=== PATIENT | female | born 1950 | race Caucasian/White ===

== ENCOUNTER → 2024-06-25 | Outpatient (CLI) | payer BC, MEDICARE, SELFPAY ==
[2024-06-25 08:12] LABS: Collection Type, Urine Clean Catch
[2024-06-25 08:54] LABS: Bilirubin,Urine Negative (Negative); Blood,Urine Negative (Negative); Clarity,Urine Clear (Clear/Hazy); Color,Urine Yellow (Lt Yel-Yel); Glucose, Urine Negative (Negative); Ketones,Urine Negative (Negative); Leukocyte Esterase,Urine Negative (Negative); Nitrite,Urine Negative (Negative); PH,Urine 6.5 (5.0-7.0); Protein,Urine Negative (Neg - Trace); RBC,Urine 1 /hpf (0-3); Specific Gravity,Urine 1.019 (1.001-1.035); Squamous Epithelial Cell,Urine 2 /hpf (0-5); Urobilinogen,Urine Negative mg/dL (0.0-1.0); WBC,Urine 1 /hpf (0-5)
[2024-06-25 08:54] LABS: Glucose Estimated Average 114 mg/dL (80-131); Hemoglobin A1C 5.6 % Hgb (4.8-6.0)
[2024-06-25 09:01] LABS: Free T4 (Free Thyroxine) 1.18 ng/dL (0.89-1.76); Thyroid Stimulating Hormone 8.97 uIU/mL (0.55-4.78)
== END | disposition home or self-care (01) ==
LOC: COPL 06:43
PROVIDERS: PCP Family Medicine; Referring Provider Family Medicine; Visit Provider Family Medicine
DX: N30.00 Acute cystitis without hematuria (principal); E03.8 Other specified hypothyroidism; E11.9 Type 2 diabetes mellitus without complications
CPT/HCPCS: 36415; 81001; 83036; 84439; 84443; 87086

== ENCOUNTER → 2024-09-02 | Outpatient (CLI) | payer BC, MEDICARE, SELFPAY ==
[2024-09-02 07:54] LABS: Collection Type, Urine Clean Catch
[2024-09-02 08:41] LABS: Basophils # (Auto) 0.1 Thou/mm3 (0.0-0.2); Basophils % (Auto) 1 % (0-2.5); Eosinophils # (Auto) 0.4 Thou/mm3 (0.0-0.5); Eosinophils % (Auto) 5 % (0-10); Hematocrit 39.6 % (36.0-46.0); Hemoglobin 13.4 g/dL (12.0-16.0); Immature Granulocytes % (Auto) 0 % (0-0); Immature Granulocytes Auto 0.03 Thou/mm3 (0.00-0.00); Lymphocytes # (Auto) 2.6 Thou/mm3 (1.0-4.8); Lymphocytes % (Auto) 35 % (10-50); Mean Corpuscular HGB Conc 33.8 g/dl (31.0-37.0); Mean Corpuscular Hemoglobin 31.8 pg (25.0-35.0); Mean Corpuscular Volume 94 fL (80-100); Monocytes # (Auto) 0.7 Thou/mm3 (0.0-0.8); Monocytes % (Auto) 9 % (0-12); Neutrophils # (Auto) 3.7 Thou/mm3 (1.8-7.7); Neutrophils % (Auto) 49 % (37-80); Nucleated Red Blood Cell % 0 /100 WBC (0); Platelet Count 241 Thou/mm3 (140-440); RDW Standard Deviation 44.1 fL (36.4-46.3); Red Blood Count 4.22 Miln/mm3 (4.00-5.20); White Blood Count 7.6 Thou/mm3 (3.6-11.0)
[2024-09-02 08:46] LABS: Bilirubin,Urine Negative (Negative); Blood,Urine Negative (Negative); Clarity,Urine Clear (Clear/Hazy); Color,Urine Yellow (Lt Yel-Yel); Glucose, Urine Negative (Negative); Ketones,Urine Negative (Negative); Leukocyte Esterase,Urine Negative (Negative); Nitrite,Urine Negative (Negative); PH,Urine 6.5 (5.0-7.0); Protein,Urine Negative (Neg - Trace); RBC,Urine 1 /hpf (0-3); Specific Gravity,Urine 1.023 (1.001-1.035); Squamous Epithelial Cell,Urine < 1 /hpf (0-5); Urobilinogen,Urine Negative mg/dL (0.0-1.0); WBC,Urine 1 /hpf (0-5)
[2024-09-02 08:49] LABS: Parathyroid Hormone Intact 120.1 pg/ml (18.5-88.0)
[2024-09-02 08:54] LABS: Albumin, Serum 4.4 gm/dL (3.4-4.8); Anion Gap 6 (7-16); BUN/Creatinine Ratio 26 Ratio (12-20); Blood Urea Nitrogen 18 mg/dL (9-23); Calcium 9.2 mg/dL (8.3-10.6); Calcium (Corrected) 9.2 mg/dL (8.5-10.1); Carbon Dioxide 29.7 mMol/L (20.0-31.0); Chloride 106 mMol/L (98-107); Creatinine (Component) 0.7 mg/dL (0.6-1.3); Free T4 (Free Thyroxine) 1.38 ng/dL (0.89-1.76); Glucose 109 mg/dL (74-106); Osmolality,Calculated 286 (275-295); Phosphorous 3.1 mg/dL (2.4-5.1); Potassium 4.3 mMol/L (3.4-5.1); Sodium 142 mMol/L (136-145); Thyroid Stimulating Hormone 3.43 uIU/mL (0.55-4.78); eGFR > 60 See Note
[2024-09-02 09:13] LABS: Creatinine MALB Rnd Ur 101 mg/dL (30-125); Microalbumin, Random Urine < 3 mg/L (0-300)
== END | disposition home or self-care (01) ==
LOC: COPL 06:38
PROVIDERS: PCP Family Medicine; Referring Provider Internal Medicine; Visit Provider Internal Medicine
DX: E03.9 Hypothyroidism, unspecified (principal); I10 Essential (primary) hypertension; N20.0 Calculus of kidney; N23 Unspecified renal colic
CPT/HCPCS: 36415; 80069; 81001; 82043; 82570; 83970; 84439; 84443; 85025

== ENCOUNTER → 2024-09-10 | Outpatient (BNVA) | payer BC, MEDICARE, SELFPAY | END | disposition home or self-care (01) | PROVIDERS: PCP Family Medicine; Referring Provider Family Medicine; Visit Provider Urology | DX: Z09 Encounter for follow-up examination after completed treatment for conditions other than malignant neoplasm (principal); Z87.440 Personal history of urinary (tract) infections; Z87.442 Personal history of urinary calculi; Z98.84 Bariatric surgery status | CPT/HCPCS: 81003; 99212; G0463 ==

== ENCOUNTER → 2024-11-22 | Outpatient (CLI) | payer MEDICARE, BC, SELFPAY ==
--- NOTE | 2024-11-22 14:17 | XR_ITS ---
Examination: Foot, left, 3 views Technique: AP, oblique, lateral views foot, 3 views Date and time of exam: November 22, 2024 1424 hours INDICATIONS: Injury to the foot today, foot pain. FINDINGS: Severe osteopenia Fracture involving the proximal shaft fifth metatarsal without displacement IMPRESSION: Acute fracture proximal shaft fifth metatarsal
== END | disposition home or self-care (01) ==
PROVIDERS: PCP Family Medicine; Referring Provider Family Medicine; Visit Provider Family Medicine
DX: S92.352A Displaced fracture of fifth metatarsal bone, left foot, initial encounter for closed fracture (principal); X58.XXXA Exposure to other specified factors, initial encounter
CPT/HCPCS: 73630

== ENCOUNTER → 2024-11-28 | Outpatient (CLI) | payer MEDICARE, SELFPAY ==
[2024-11-28 11:32] LABS: Alanine Aminotransferase 20 U/L (10-49); Albumin, Serum 4.4 gm/dL (3.4-4.8); Alkaline Phosphatase 66 U/L (46-116); Aspartate Amino Transferase 27 U/L (0-34); Bilirubin,Direct 0.2 mg/dL (0.0-0.3); Bilirubin,Total 0.8 mg/dL (0.3-1.2); Total Protein 6.3 gm/dL (5.7-8.2)
== END | disposition home or self-care (01) ==
PROVIDERS: PCP Family Medicine; Referring Provider Student in an Organized Health Care Education/Training Program; Visit Provider Student in an Organized Health Care Education/Training Program
DX: B35.1 Tinea unguium (principal)
CPT/HCPCS: 36415; 80076

== ENCOUNTER → 2024-12-03 | Outpatient (CLI) | payer MEDICARE, SELFPAY ==
--- NOTE | 2024-12-03 | XR_ITS ---
Examination: Knee, left , 3 views Technique: Knee AP, lateral, oblique 3 views Date and time of exam: December 03, 2024 1252 hours INDICATIONS: Left knee pain 7 months. FINDINGS: Advanced left knee tricompartment osteoarthritis This includes severe narrowing medial joint space Moderate osteopenia No fracture IMPRESSION: Advanced left knee tricompartment osteoarthritis
== END | disposition home or self-care (01) ==
PROVIDERS: PCP Family Medicine; Referring Provider Family Medicine; Visit Provider Family Medicine
DX: M17.12 Unilateral primary osteoarthritis, left knee (principal)
CPT/HCPCS: 73562

== ENCOUNTER 2025-01-03 09:31 | Outpatient (AMB) | payer MEDICARE, SELFPAY ==
--- NOTE | 2025-01-03 09:45 | ORTHONT_ITS ---
Vital signs 01/03/25 09:57 Height 1.65 m Height Method Measured Weight 92.788 kg Weight Measurement Method Standing Scale BMI 34.0 BP 132/75 H Blood Pressure Source Automatic Cuff Blood Pressure Location Right Upper Arm Position Sitting Respiration 16 Pulse 74 Pulse Source Monitor Temp 97.4 F Temp Source Temporal Artery Scan Pulse Oximetry (%) 97 Oxygen Delivery Method Room Air Med/Allergies Allergies & Medications Allergies adhesive tape Allergy (Severe, Verified 01/03/25 09:58) SKIN BLISTERS, SKIN PEELS WHEN PULLING OFF Sulfa (Sulfonamide Antibiotics) Allergy (Severe, Verified 01/03/25 09:58) Hives Medication Reconciliation [id number]-FA-Ca carb-vit K 18 mg iron-400 mcg-500 mg tablet (Women's Multivitamin) 1 tab PO QDAY 10/09/18 [History Confirmed 01/03/25] alendronate 70 mg tablet (Fosamax) 70 mg PO QWEEK 01/03/23 [History Confirmed 01/03/25] amitriptyline 25 mg tablet 25 mg PO QHS 01/03/23 [History Confirmed 01/03/25] levothyroxine 125 mcg capsule 125 mcg PO QDAY 01/03/23 [History Confirmed 01/03/25] potassium citrate 10 mEq (1,080 mg) tablet,extended release 2,160 mg PO BID 01/03/23 [History Confirmed 01/03/25] ascorbic acid (vitamin C) 500 mg tablet (Vitamin C) 500 mg PO DAILY 03/10/23 [History Confirmed 01/03/25] folic acid-vit B6-vit B12 2.5 mg-25 mg-2 mg tablet 1 tab PO DAILY 03/10/23 [History Confirmed 01/03/25] losartan 50 mg-hydrochlorothiazide 12.5 mg tablet 1 tab PO DAILY 03/10/23 [History Confirmed 01/03/25] trazodone 100 mg tablet 100 mg PO HS 03/10/23 [History Confirmed 01/03/25] terbinafine HCl 125 mg oral granules in packet mg PO 01/03/25 [History Confirmed 01/03/25] Exam Exam Patient is in no acute distress and is cooperative with the examination today. Breathing is nonlabored. Patient has a normal mood and affect. Bilateral extremities were evaluated and demonstrates sensation intact to light touch. Palpable pedal pulses are present. No significant edema is present. Bilateral hips were examined. The patient has no pain with log roll of the hips. Internal rotation to 30 degrees and external rotation to 30 degrees is painless. Negative FADIR. Right knee was examined today. The right knee is in reasonable alignment. Range of motion from 0-120 degrees. Knee is stable to varus and valgus as well as AP translation with <5mm. Patient has a negative McMurrays. There is no pain with patellofemoral compression and no crepitus noted. The knee is nontender to palpation. Left knee was examined today. The left knee is in varus alignment. Range of motion from 0-115 degrees. Knee is stable to varus and valgus as well as AP translation with <5mm. Patient has a negative McMurrays. There is no pain with patellofemoral compression and no crepitus noted. The knee is tender to palpation medially. Left knee x-rays demonstrates complete joint space obliteration of the medial joint with varus deformity. Osteophytes are present Assessment and Plan Problem List (1) Arthritis of left knee: Status: Acute Plan: Patient is a pleasant 74-year-old female with left knee pain and left knee arthritis. We discussed different treatment options. She has failed conservative treatment and the pain is affecting her quality life. She cannot take anti-inflammatories due to her gastric bypass. We thus discussed total knee replacement is a reasonable option. The nature and purpose of the total knee replacement, alternative method(s) of treatment, the material risks involved, and the possibility of complications were fully explained to the patient. The patient does NOT have any of the following contraindications to TKA: - Active infection of the knee joint, OR - Active systemic bacteremia, OR - Active skin infection or open wound at surgical site, OR - Neuropathic arthritis, OR - Severe, rapidly progressive neurological disease, OR - Severe medical condition that makes risks of surgery outweigh the potential benefit The patient was told the most common risks and complications associated with a total knee replacement include, but are not limited to: blood clots in the leg, fatal pulmonary embolism, dislocation of the prosthesis, intraoperative and postoperative fractures of the femur or tibia, infection, failure of the prosthesis or grafting materials, complications from anesthesia, reactions to blood transfusions, postoperative leg length inequality, instability of the knee replacement, nerve damage or injury, vascular injury, delayed wound healing, infection, other injury or even . In addition, there are risks associated with anesthesia given during this operation. Also, the patient was told that after undergoing a total knee replacement there may still be persistent pain or disability. The patient was informed that the success of this operation in part depends upon the mechanical devices which are going to be implanted and that these devices can fail or malfunction, and may need to be repaired or replaced and there are no guarantees as to the longevity of this device or its parts and that it or its parts could fail prematurely. The patient was also notified that during the course of surgery, there may be a need to use bone graft from donors, and that any bone graft used will be carefully screened for communicable diseases, including AIDS, hepatitis, Wali-Creutzfeldt, or other diseases, but despite the screening procedures, there is a small chance that they could contract one of these diseases. Finally, the patient was asked to follow completely and fully with all advice and recommended treatments, and that recovery and ultimate outcome are affected by their compliance with recommended treatment. We discussed the risks, benefits and treatment alternatives, and the patient is interested in proceeding with surgery. We will try to set this up as expeditiously as possible. 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) Reason for Visit:: LEFT KNEE OSTEOARTHRITIS Seen by Clinical Staff ONLY (RN/MA): No Equine Intern Required: No PCP or OBGYN visit in last 3 months: Yes Hx Now: No Do You Feel Safe at Home: Yes Authorities Contacted: N/A Questionairres Past Medical History Past Medical History Have you ever been diagnosed with any of the following: Neurological Problems Cerebrovascular Accident (CVA): No Transient Ischemic Attacks (TIA): No Dementia: No Alzheimer's Disease: No Parkinson's Disease: No Brain Tumor: No Meningitis: No Seizures: No Epilepsy: No Multiple Sclerosis: No Cerebral Palsy: No Amyotrophic Lateral Sclerosis (ALS/Radhika Gehrig's): No Guillain-[place] Syndrome: No Spina Bifida: No Paralysis: No Peripheral Neuropathy: Yes Rey's Palsy: No Subdural Hematoma: No Migraine: Yes Head Trauma: No Spinal Cord Injury: No Traumatic Brain Injury: No Cardiology Problems Myocardial Infarction: No Cardiac Arrhythmia: No Atrial Fibrillation: No Angina: No Heart Murmur: No Coronary Artery Disease: No Atherosclerotic Heart Disease: No Peripheral Vascular Disease: No Hypercholesterolemia: No Aneurysm: No Congestive Heart Failure: No Congenital Heart Disease: No Valvular Heart Disease: No Rheumatic Fever: No Cardiomyopathy: No Edema: Yes Pericarditis: No Cellulitis: No Deep Vein Thrombosis: No Hypertension: Yes Hypotension: No Varicose Veins: Yes Respiratory Problems Chronic Obstructive Pulmonary Disease (COPD): No Asthma: No Bronchitis: No Emphysema: No Pneumonia: No Pulmonary Fibrosis: No Tuberculosis: No Pulmonary Embolism: No Pulmonary Edema: No Sleep Apnea: No CPAP Dependent: No Respiratory Aspiration: No Dyspnea: No Orthopnea: No Hx Cough: No Cough: No Wheezing: No Chest Deformities: No Smoking: No Smoking Cessation Counseling: No Smoking Exposure: No Tobacco Use: No Clubbing: No Exposure to Respiratory Irritants: No Intubation: No Stomache/Intestinal Problems Liver Cancer: No Hepatitis: No Cirrhosis: No Pancreatic Cancer: No Pancreatitis: Yes Celiac Disease: No Gall Bladder Disease: Yes (cholecystectomy) Gastrointestinal Bleed: No Esophageal Varices: No Costello's Esophagus: No Colitis: Yes Ulcerative Colitis: No Diverticulitis: No Diverticulosis: No Ulcer: No Colorectal Cancer: No Irritable Bowel: No Crohn's Disease: No Obstructive Bowel: No Hiatal Hernia: No Hemorrhoids: No Gastroesophageal Reflux Disease: No Polyps: No Obesity: No Genital/Urinary Problems Chronic Kidney Disease: No Renal Disease: No Kidney Stones: Yes (lythotripsyx7) Polycystic Kidney Disease: No Neurogenic Bladder: No Inguinal Hernia: No Dialysis: No Reproductive Problems Breast Cancer: No Endometriosis: No Fibroids: No Genital Herpes: No Gonorrhea: No Pelvic Inflammatory Disease: No Polycystic Ovarian Syndrome: No Previous Pregnancies: Yes () Syphilis: No Uterine Prolapse: No Musculoskeletal Problems Muscular Dystrophy: No Myasthenia Gravis: No Marfan's Syndrome: No Bone Cancer: No Arthritis: Yes Rheumatoid Arthritis: No Osteoporosis: No Degenerative Disk Disease: No Gout: Yes Scoliosis: No Carpal Tunnel Syndrome: Yes (and trigger finger release ) Fibromyalgia: No Fractures: Yes Degenerative Joint Disease: No Osteomyelitis: No Poliovirus: No Head,Eye,Nose,Throat Problems Cataracts: No Glaucoma: No Blind: No Retinal Detachment: No Macular Degeneration: No Chronic Ear Infections: No Deafness: No Eye Prosthesis: No Endocrine Problems Diabetes Mellitus Type 1: No Diabetes Mellitus Type 2: Yes (History of no longer taking medication) Hypoglycemia: No Hedrick's Syndrome: No [place]'s Disease: No Hyperthyroidism: No Hypothyroidism: Yes Thyroid Cancer: No Parathyroid Disease: No Pituitary Disease: No Systemic Lupus Erythematosus: No Syndrome of Inappropriate Antidiuretic Hormone: No Adrenal Disease: No Graves' Disease: No Blood Problems Anemia: No Leukemia: No Hemophilia: No Thalassemia: No Sickle Cell Disease: No Clotting Problems: No Psychologic Problems Schizophrenia: No Recreational Drug Use: No Bipolar Disorder: No Depression: No Anxiety: No Behavior Problems: No Self-Mutilation: No Attention Deficit Disorder: No Attention Deficit Hyperactivity Disorder: No Depression: No Post Traumatic Stress Disorder: No Eating Disorder: No Other Problems Hospitalization: Yes Autoimmune Disease: No Down Syndrome: No Autism: No Developmental Delay: No Cosmetic Surgery: No Shingles: No Falls: No Blood Transfusions: No Blood Transfusion Reaction: No Anesthesia Reactions: No Organ Transplant: No Chemotherapy: No Radiation Therapy: No Hyperbaric Therapy: No MRSA: No VRSA: No Vancomycin-Resistant Enterococci: No Human Immunodeficiency Virus (HIV): No Chicken Pox: Yes Measles: Yes Mumps: Yes Rubella (Qatari Measles): No Pertussis: No Klebsiella Pneumoniae Carbapenemase Producing Bacteria: No Clostridium Difficile: No Hepatitis A: No Hepatitis B: No Hepatitis C: No Communicable Disease: No Cancer: No Cervical Cancer: No Lung Cancer: No Ovarian Cancer: No Surgical History Angioplasty: No Appendectomy: No Bariatric Surgery: No Breast Surgery: No Cancer Surgery: No Carotid Endarterectomy: No Cholecystectomy: No Colectomy: No Colostomy: No Coronary Artery Bypass Graft: No Valve Replacement: No Herniorrhaphy: No Total Hip Replacement: No Total Knee Replacement: Yes (RIGHT KNEE) Hysterectomy: No Pacemaker: No Sinus Surgery: No Splenectomy: No TAHBSO-Total Abdominal Hysterectomy: No Thyroidectomy: Yes (Parathyroidectomy 2011) Ureter Stent: No Subjective Visit Visit for: new patient and knee Immunization / Flu Flu Vaccine in the Last 12 Months: Yes Flu Vaccine Exclusion Criteria: Allergy to Eggs History of Present Illness Chief complaint: LEFT KNEE OSTEOARTHRITIS Jasmin is a pleasant 74-year-old female with left knee pain. She had a right total knee replacement approximately 15 years ago. She is doing well. For the left knee she cannot take anti-inflammatories because she had a prior gastric bypass. She has not had any injections because she is deathly afraid of needles. The pain is affecting her quality life and happiness Personal History Occupation: RETIRED [employer] provided: No Pain Pain level (0-10): 6 Pain location: inside (medial) and anterior Pain quality: sharp Pain timing: night Associated signs & symptoms: none Ambulatory data Ambulatory device: cane and walker Treatments Improvement with previous injections: No Improvement with PT: No Improvement with NSAIDS: no Review of Systems Review of Systems: All systems negative unless otherwise noted in HPI.
[2025-01-03 09:57] VITALS: BP 132/75; PULSE 74; RESP 16; TEMP 36.3; O2SAT 97; BMI 34.0
--- NOTE | 2025-01-03 10:02 | XR_ITS ---
Examination: Bilateral knees 2 views Right lateral knee left lateral knee 2 views Bilateral axial knees single view TECHNIQUE: Bilateral AP knees standing single view, bilateral PA knees standing single view flexion Standing right lateral knee left lateral knee 2 views Bilateral axial knees single view total 5 views Date and time: January 03, 2025 1019 hours INDICATIONS: Left knee pain 6 months FINDINGS: Significant osteopenia Total right knee arthroplasty. Satisfactory alignment. No loosening of the prosthetic components Severe narrowing [id number]-mz-ulfo medial joint space left knee Significant osteoarthritis lateral patellofemoral joints left knee IMPRESSION: Advanced tricompartment osteoarthritis left knee including severe narrowing medial joint space
== END 2025-01-03 10:15 | disposition home or self-care (01) ==
LOC: HODSRG 09:31
PROVIDERS: PCP Family Medicine; Referring Provider Family Medicine; Supervising Provider Orthopaedic Surgery Adult Reconstructive Orthopaedic Surgery; Visit Provider Orthopaedic Surgery Adult Reconstructive Orthopaedic Surgery
DX: M17.12 Unilateral primary osteoarthritis, left knee (principal); M25.562 Pain in left knee; I10 Essential (primary) hypertension; E11.9 Type 2 diabetes mellitus without complications; Z98.84 Bariatric surgery status
CPT/HCPCS: 73564; 99203; G0463

== ENCOUNTER → 2025-01-13 | Outpatient (CLI) | payer MEDICARE, BC, SELFPAY ==
--- NOTE | 2025-01-13 10:30 | XR_ITS ---
Examination: Screening digital mammography, bilateral Computer aided detection 3-D breast Tomosynthesis, bilateral Date and time of exam: January 13, 2025 1003 hours Compared to mammograms dating to January 03, 2019 Indication: Screening Technique: Nonmagnified MLO, CC views of the breasts to been obtained, reconstructed from 3-D Tomosynthesis images. R2 computer aided detection program utilized for evaluation of suspicious masses and/or abnormal calcifications. 3-D Tomosynthesis images obtained. Findings: Scattered areas of fibroid rather density. Benign calcifications. No interval suspicious masses Impression: BI-RADS category II: Benign Findings. Recommend 1 year follow-up mammogram.
[2025-01-13 10:49] LABS: Basophils # (Auto) 0.0 Thou/mm3 (0.0-0.2); Basophils % (Auto) 1 % (0-2.5); Eosinophils # (Auto) 0.3 Thou/mm3 (0.0-0.5); Eosinophils % (Auto) 4 % (0-10); Hematocrit 39.1 % (36.0-46.0); Hemoglobin 13.8 g/dL (12.0-16.0); Immature Granulocytes Auto 0.03 Thou/mm3 (0.00-0.00); Lymphocytes # (Auto) 2.9 Thou/mm3 (1.0-4.8); Lymphocytes % (Auto) 42 % (10-50); Mean Corpuscular HGB Conc 35.3 g/dl (31.0-37.0); Mean Corpuscular Hemoglobin 32.2 pg (25.0-35.0); Mean Corpuscular Volume 91 fL (80-100); Monocytes # (Auto) 0.4 Thou/mm3 (0.0-0.8); Monocytes % (Auto) 6 % (0-12); Neutrophils # (Auto) 3.2 Thou/mm3 (1.8-7.7); Neutrophils % (Auto) 47 % (37-80); Nucleated Red Blood Cell # 0.00 Thou/mm3 (0.00-0.00); Nucleated Red Blood Cell % 0 /100 WBC (0); Platelet Count 282 Thou/mm3 (140-440); RDW Standard Deviation 42.8 fL (36.4-46.3); Red Blood Count 4.29 Miln/mm3 (4.00-5.20); White Blood Count 7.0 Thou/mm3 (3.6-11.0)
[2025-01-13 10:58] LABS: INR 1.0 (0.9-1.3); Partial Thromboplastin Time 26.9 Seconds (22.0-36.0); Prothrombin Time 10.8 Seconds (9.0-12.2)
--- NOTE | 2025-01-13 10:59 | EKG_ITS ---
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
[2025-01-13 11:06] LABS: Alanine Aminotransferase 32 U/L (10-49); Albumin, Serum 4.5 gm/dL (3.4-4.8); Albumin/Globulin Ratio 1.8 (1.2-2.2); Alkaline Phosphatase 72 U/L (46-116); Anion Gap 13 (7-16); Aspartate Amino Transferase 42 U/L (0-34); BUN/Creatinine Ratio 26 Ratio (12-20); Bilirubin,Total 0.7 mg/dL (0.3-1.2); Blood Urea Nitrogen 29 mg/dL (9-23); Calcium 9.5 mg/dL (8.3-10.6); Calcium (Corrected) 9.5 mg/dL (8.5-10.1); Carbon Dioxide 22.9 mMol/L (20.0-31.0); Chloride 104 mMol/L (98-107); Creatinine (Component) 1.1 mg/dL (0.6-1.3); Globulin 2.5 gm/dL (2.3-3.5); Glucose 110 mg/dL (74-106); Osmolality,Calculated 286 (275-295); Potassium 4.0 mMol/L (3.4-5.1); Sodium 140 mMol/L (136-145); Total Protein 7.0 gm/dL (5.7-8.2); eGFR 53 See Note
[2025-01-13 11:19] LABS: Glucose Estimated Average 120 mg/dL (80-131); Hemoglobin A1C 5.8 % Hgb (4.8-6.0)
== END | disposition home or self-care (01) ==
LOC: CDIM 09:49 → COPL 10:12
PROVIDERS: Referring Provider Family Medicine; Visit Provider Family Medicine
DX: Z01.818 Encounter for other preprocedural examination (principal); Z12.31 Encounter for screening mammogram for malignant neoplasm of breast; R92.323 Mammographic fibroglandular density, bilateral breasts; R92.1 Mammographic calcification found on diagnostic imaging of breast
CPT/HCPCS: 36415; 77063; 77067; 80053; 83036; 85025; 85610; 85730; 93005

== ENCOUNTER → 2025-02-04 | Outpatient (CLI) | payer MEDICARE, BC, SELFPAY ==
--- NOTE | 2025-02-04 10:16 | XR_ITS ---
Examination: CT left lower extremity, without contrast. 2-D sagittal reconstructions. 2-D coronal reconstructions. 3-D reconstructions. Date and time of exam:February 04, 2025 10:35 AM INDICATIONS: Diagnosis left knee unilateral osteoarthritis left knee pain 8 months CTDI: vol (mGy):13.4 DLP: (mGycm):940 Technique: Multiple 1.25 mm axial sections of the left lower extremity without intravenous contrast have been obtained. 2-D sagittal and coronal reconstructions have been obtained. 3-D reconstructions have been obtained. Low dose protocols were performed. One or more of the following dose reduction techniques were used; automated exposure control, adjustment of the mA and/or KV according to patient size, use of iterative reconstruction technique. Findings: Prominent osteopenia Moderate narrowing left hip joint No left hip fracture or dislocation No avascular necrosis Severe narrowing medial joint space left knee Significant osteoarthritis lateral and patellofemoral joints IMPRESSION: Advanced left knee osteoarthritis, including severe narrowing medial joint space
== END | disposition home or self-care (01) ==
PROVIDERS: PCP Family Medicine; Referring Provider Orthopaedic Surgery Adult Reconstructive Orthopaedic Surgery; Visit Provider Orthopaedic Surgery Adult Reconstructive Orthopaedic Surgery
DX: M17.12 Unilateral primary osteoarthritis, left knee (principal); M25.862 Other specified joint disorders, left knee
CPT/HCPCS: 73700

== ENCOUNTER → 2025-02-11 | Outpatient (CLI) | payer MEDICARE, BC, SELFPAY ==
[2025-02-11 14:30] LABS: Collection Type, Urine Clean Catch
[2025-02-11 17:12] LABS: Bilirubin,Urine Negative (Negative); Blood,Urine Negative (Negative); Clarity,Urine Clear (Clear/Hazy); Color,Urine Yellow (Lt Yel-Yel); Glucose, Urine Negative (Negative); Ketones,Urine Negative (Negative); Leukocyte Esterase,Urine Trace (Negative); Nitrite,Urine Positive (Negative); PH,Urine 6.0 (5.0-7.0); Protein,Urine Negative (Neg - Trace); Specific Gravity,Urine 1.025 (1.001-1.035); Urobilinogen,Urine 0.2 mg/dL (0.0-1.0)
[2025-02-11 18:09] LABS: Bacteria,Urine 1+; RBC,Urine 5 /hpf (0-3); Squamous Epithelial Cell,Urine 2 /hpf (0-5); WBC,Urine 5 /hpf (0-5)
== END | disposition home or self-care (01) ==
LOC: SLDO 14:20
PROVIDERS: Referring Provider Family Medicine; Visit Provider Family Medicine
DX: N30.00 Acute cystitis without hematuria (principal)
CPT/HCPCS: 81001; 87077; 87086; 87186

== ENCOUNTER 2025-02-17 06:40 | Day surgery (SDC) | payer MEDICARE, BC, SELFPAY ==
[2025-02-12 10:30] VITALS: BMI 35.7
[2025-02-12 11:56] LABS: Basophils # (Auto) 0.1 Thou/mm3 (0.0-0.2); Basophils % (Auto) 1 % (0-2.5); Eosinophils # (Auto) 0.3 Thou/mm3 (0.0-0.5); Eosinophils % (Auto) 4 % (0-10); Hematocrit 40.8 % (36.0-46.0); Hemoglobin 13.8 g/dL (12.0-16.0); Immature Granulocytes Auto 0.01 Thou/mm3 (0.00-0.00); Lymphocytes # (Auto) 2.1 Thou/mm3 (1.0-4.8); Lymphocytes % (Auto) 32 % (10-50); Mean Corpuscular HGB Conc 33.8 g/dl (31.0-37.0); Mean Corpuscular Hemoglobin 32.2 pg (25.0-35.0); Mean Corpuscular Volume 95 fL (80-100); Monocytes # (Auto) 0.5 Thou/mm3 (0.0-0.8); Monocytes % (Auto) 8 % (0-12); Neutrophils # (Auto) 3.6 Thou/mm3 (1.8-7.7); Neutrophils % (Auto) 55 % (37-80); Nucleated Red Blood Cell # 0.00 Thou/mm3 (0.00-0.00); Nucleated Red Blood Cell % 0 /100 WBC (0); Platelet Count 242 Thou/mm3 (140-440); RDW Standard Deviation 45.1 fL (36.4-46.3); Red Blood Count 4.29 Miln/mm3 (4.00-5.20); White Blood Count 6.6 Thou/mm3 (3.6-11.0)
[2025-02-12 12:02] LABS: INR 1.0 (0.9-1.3); Partial Thromboplastin Time 26.0 Seconds (22.0-36.0); Prothrombin Time 10.9 Seconds (9.0-12.2)
[2025-02-12 12:17] LABS: Alanine Aminotransferase 21 U/L (10-49); Albumin, Serum 4.4 gm/dL (3.4-4.8); Albumin/Globulin Ratio 2.2 (1.2-2.2); Alkaline Phosphatase 64 U/L (46-116); Anion Gap 10 (7-16); Aspartate Amino Transferase 29 U/L (0-34); BUN/Creatinine Ratio 23 Ratio (12-20); Bilirubin,Total 0.6 mg/dL (0.3-1.2); Blood Urea Nitrogen 21 mg/dL (9-23); Calcium 10.1 mg/dL (8.3-10.6); Calcium (Corrected) 10.1 mg/dL (8.5-10.1); Carbon Dioxide 26.9 mMol/L (20.0-31.0); Chloride 103 mMol/L (98-107); Creatinine (Component) 0.9 mg/dL (0.6-1.3); Estimated Creatinine Clearance 59.8 mL/min (>60); Globulin 2.0 gm/dL (2.3-3.5); Glucose 121 mg/dL (74-106); Osmolality,Calculated 283 (275-295); Potassium 4.4 mMol/L (3.4-5.1); Sodium 140 mMol/L (136-145); Total Protein 6.4 gm/dL (5.7-8.2); eGFR > 60 See Note
--- NOTE | 2025-02-14 12:39 | SUR.PREOP ---
Cardiac records reviewed with Dr Herr.
[2025-02-17] VITALS (21 sets, daily range): BP systolic 111–157; BP diastolic 53–89; PULSE 70–86; RESP 12–24; TEMP 36.3–36.5; O2SAT 95–100; BMI 35.6
--- NOTE | 2025-02-17 07:34 | SUR.PREOP ---
Patient expressed gratitude for prayer before their procedure.
[2025-02-17] MEDS: MELOXICAM 7.5 MG TABLET PO (07:40)
[2025-02-17] MEDS: ACETAMINOPHEN 325 MG TABLET 650 MG PO (07:40)
[2025-02-17] MEDS: PREGABALIN 75 MG CAPSULE PO (07:41)
[2025-02-17] MEDS: RINGERS LACTATED 1000 ML 1,000 ML 20 ML IV (07:41)
--- NOTE | 2025-02-17 10:33 | ESOP_ITS ---
Date of Procedure 02/17/25 Pre Op Diagnosis left knee osteoarthritis Post Op Diagnosis left knee osteoarthritis Procedure left total knee replacement Findings full thickness cartilage loss and osteophytes Procedure Description Indication: The patient is a [69] year old who has a long history of left knee pain. X-rays show degenerative arthritis involving the knee. Over the past several years the patient has had increasing pain, progressive limitation in function. He has failed conservative measures including activity modification, physical therapy, injections, anti-inflammatories, and assistive devices. After a lengthy discussion of the risks and benefits, the patient presents now for total knee replacement. The nature and purpose of the total knee replacement, alternative method(s) of treatment, the material risks involved, and the possibility of complications were fully explained to the patient. The patient was told the most common risks and complications associated with a total knee replacement include, but are not limited to blood clots in the leg, fatal pulmonary embolism, dislocation of the prosthesis, intraoperative and postoperative fractures of the femur or tibia, infection, failure of the prosthesis or grafting materials, complications from anesthesia, reactions to blood transfusions, postoperative leg length inequality, instability of the knee replacement, nerve damage or injury, vascular injury, delayed wound healing, infections, other injury or even . In addition, there are risks associated with anesthesia given during this operation, temporary or permanent numbness on the skin lateral to the incision can be a complication unique to total knee surgery, and kneeling can be painful after knee replacement surgery. Also, the patient was told that after undergoing a total knee replacement there may still be pain or disability. We discussed with the patient that we will be using a robot-assisted technology. We discussed that there is a possibility of converting to manual instrumentation. The patient was informed that the success of this operation in part depends upon the mechanical devices which are going to be implanted and that these devices can fail or malfunction, and may need to be repaired or replaced and there are no guarantees as to the longevity of this device or its part and that it or its parts could fail prematurely. Finally, the patient was asked to follow completely and fully with all advice and recommended treatments, and that recovery and ultimate outcome are affected by their compliance with recommended treatment. Surgical technique: Patient was marked and consented in the pre-operative area. The patient was brought to the operating room and placed on the operating table in a supine position. Prior to positioning, a timeout procedure was performed between the surgeon, the anesthesiologist, and the nursing staff where the patient and the operative side were identified and confirmed. After adequate general anesthetic was obtained, the left lower extremity was prepped and draped in the usual sterile fashion. A weight based dose of Cefazolin were administered within 1 hour prior to incision. The robot was preregistered and calirated before the incision. The extremity was exsanguinated with an esmarch badge and tourniquet inflated to 250mmHg. A midline incision was made. A median parapatellar arthrotomy was made. The patella was subluxed laterally. A medial release was performed to expose the medial tibia. His femoral and tibial pins were placed through an intra incisional manner for both cases. Every effort was made to ensure that the distalmost aspect of the pin was hung in the second cortex. The arrays were then tightened several times to ensure that it was fixed for the remainder of the case. Both femoral and tibial checkpoints were then placed. We then went through the registration process of the bone. We then assessed the knee deformity and attempted to correct it. We also used the robot to aid in judging laxity in both extension and flexion. Final based on laxity and alignment we changed the preoperative assessment to obtain proper proper implant positioning and to correct deformity. Attention was then placed to the tibia. We made a tibial cut using the robot ensuring that both the MCL and the patella tendon were protected with retractors. We then went to the femur and made the posterior cut followed by the anterior cut and the anterior chamfer. The bone was then removed and we made a distal femur cut and a posterior chamfer cut. We verified all cuts. A trial reduction was performed with a size 4 femoral component and a size 4 keeled tibial component. The patella tracked centrally, and no lateral retinacular release was necessary. The trial implants were removed. The arrays, pins, and checkpoints were all removed. We performed a verification that all pins were removed. The cut bone surfaces were lavaged. A size 4 left femoral component, a size 4 keeled tibial component were impacted into position. The knee was felt to be well balanced in the sagittal and coronal plane. The final 4x10 mm cruciate- substituting articular insert was impacted into the tibial tray. The knee was brought out to full extension, flexed up to 120 degrees. It was stable to varus and valgus stress and appropriately balanced in flexion and extension. The wounds were copiously irrigated following deflation of tourniquet. The medial retinaculum was reapproximated with #1 vicryl and quill. The subcutaneous tissues were closed with 0 and 2-0 interrupted Vicryl. The skin was closed with 3-0 Monofilament V loc suture. A sterile dressing was applied. The patient was transferred to a bed and brought to recovery in stable condition. The patient tolerated the procedure well. There were no intraoperative complications. Sponge and needle counts were correct times 2. As the attending surgeon, Aarti prater I was present and performed the entire operation. Grafts/Implants Size 4 CR Femur Size 4 Tibia 10mm poly CS Anesthesia spinal Implants jan Pathology / specimen None Pathology comment: none Estimated Blood Loss 150 Condition Stable Disposition same day Surgeon Pavel Samuels MD Surgical Staff Operation Date: 02/17/25 10:45 Case Staff Anesthesiologist: Jovany Herr RNrn cardiovascular: Leonie Bassett
--- NOTE | 2025-02-17 10:50 | SUR.PHASEI ---
pt received from OR in recovery bay 7. pt awake and alert, breathing unlabored on room air. v/s stable. pt dressing to left lower extremity cdi. report received from Dr. Herr and Jaswinder RIVERA.
--- NOTE | 2025-02-17 11:08 | SUR.PHASEI ---
pt able to tolerate ice chips without difficulty swallowing or nausea/vomiting.
--- NOTE | 2025-02-17 11:14 | XR_ITS ---
Examination: Left knee 2 views TECHNIQUE: AP lateral left knee 2 views. Date and time: February 17, 2025 1113 hours INDICATIONS: Postop knee replacement. FINDINGS: Total left knee arthroplasty. Satisfactory alignment. No fracture IMPRESSION: Total left knee arthroplasty with satisfactory alignment
[2025-02-17] MEDS: fentaNYL CIT INJ 50 mCg/ML AMP 2ML IVP ×2 (14:55→16:36)
--- NOTE | 2025-02-17 16:55 | SUR.PHASEII ---
pt awake and alert, breathing unlabored on room air. v/s stable. pt dressing to left lower extremity cdi. pt cleared by physical therapist Jorge. pt able to ambulate to bathroom using walker. d/c instructions given pt and Marshal, all quesitons answered. pt d/c via wheelchair with all belongings.
--- NOTE | 2025-02-21 15:52 | PD.ANESPROG ---
Documentation for date of: 02/21/25 POST ANESTHESIA NOTE: Patient had spinal anesthesia and L adductor canal block for L TKA on 02/17/25. I just called and spoke with her on the phone and she denied any problems from anesthesia and only reported post op L knee pain but reported she is bending it and endorsed she has follow up with the surgeon scheduled and had no further questions for me. Jovany Herr MD Anesthesia Progress Note Progress Note Most recent Vital Signs: Last Vital Signs Temp 97.4 F 02/17/25 16:00 Pulse 85 02/17/25 16:00 Resp 14 02/17/25 16:00 BP 117/79 02/17/25 16:00 Pulse Ox 96 02/17/25 16:00 O2 Flow Rate 2 02/17/25 10:55
== END 2025-02-17 16:55 | disposition home or self-care (01) ==
PROVIDERS: Anesthesiology; PCP Family Medicine; Referring Provider Orthopaedic Surgery Adult Reconstructive Orthopaedic Surgery; Visit Provider Orthopaedic Surgery Adult Reconstructive Orthopaedic Surgery
PROC: (CPT 27447; principal; 2025-02-17 10:30)
DX: M17.12 Unilateral primary osteoarthritis, left knee (principal); M25.762 Osteophyte, left knee
CPT/HCPCS: 27447; 20985; 36415; 73560; 80053; 85025; 85610; 85730; 97162; A4217; A4649; C1713; C1776; J0690; J1100; J2250; J2704; J2795; J3010; J3490; J7120; J7999; A4648; A9270

== ENCOUNTER → 2025-03-04 | Outpatient (CLI) | payer MEDICARE, BC, SELFPAY ==
[2025-03-04 14:56] LABS: Collection Type, Urine Clean Catch
[2025-03-04 17:27] LABS: Bilirubin,Urine 2+ (Negative); Blood,Urine Negative (Negative); Clarity,Urine Clear (Clear/Hazy); Color,Urine Drk-Yellow (Lt Yel-Yel); Glucose, Urine Negative (Negative); Hyaline Casts,Urine < 1 /hpf (0-1); Ketones,Urine Negative (Negative); Leukocyte Esterase,Urine Negative (Negative); Nitrite,Urine Positive (Negative); PH,Urine 6.5 (5.0-7.0); Protein,Urine Negative (Neg - Trace); RBC,Urine 1 /hpf (0-3); Specific Gravity,Urine 1.027 (1.001-1.035); Squamous Epithelial Cell,Urine 1 /hpf (0-5); Urobilinogen,Urine 4.0 mg/dL (0.0-1.0); WBC,Urine 1 /hpf (0-5)
== END | disposition home or self-care (01) ==
PROVIDERS: PCP Family Medicine; Referring Provider Family Medicine; Visit Provider Family Medicine
DX: N30.00 Acute cystitis without hematuria (principal)
CPT/HCPCS: 81001; 87086

== ENCOUNTER → 2025-03-11 | Outpatient (CLI) | payer MEDICARE, BC, SELFPAY ==
[2025-03-11 07:58] LABS: Collection Type, Urine Clean Catch
[2025-03-11 08:39] LABS: Basophils # (Auto) 0.1 Thou/mm3 (0.0-0.2); Basophils % (Auto) 1 % (0-2.5); Eosinophils # (Auto) 0.5 Thou/mm3 (0.0-0.5); Eosinophils % (Auto) 8 % (0-10); Hematocrit 40.5 % (36.0-46.0); Hemoglobin 13.5 g/dL (12.0-16.0); Immature Granulocytes Auto 0.02 Thou/mm3 (0.00-0.00); Lymphocytes # (Auto) 2.3 Thou/mm3 (1.0-4.8); Lymphocytes % (Auto) 33 % (10-50); Mean Corpuscular HGB Conc 33.3 g/dl (31.0-37.0); Mean Corpuscular Hemoglobin 31.9 pg (25.0-35.0); Mean Corpuscular Volume 96 fL (80-100); Monocytes # (Auto) 0.6 Thou/mm3 (0.0-0.8); Monocytes % (Auto) 9 % (0-12); Neutrophils # (Auto) 3.5 Thou/mm3 (1.8-7.7); Neutrophils % (Auto) 50 % (37-80); Nucleated Red Blood Cell # 0.00 Thou/mm3 (0.00-0.00); Nucleated Red Blood Cell % 0 /100 WBC (0); Platelet Count 345 Thou/mm3 (140-440); RDW Standard Deviation 47.6 fL (36.4-46.3); Red Blood Count 4.23 Miln/mm3 (4.00-5.20); White Blood Count 7.1 Thou/mm3 (3.6-11.0)
[2025-03-11 08:44] LABS: Bilirubin,Urine Negative (Negative); Blood,Urine Negative (Negative); Clarity,Urine Clear (Clear/Hazy); Color,Urine Yellow (Lt Yel-Yel); Glucose, Urine Negative (Negative); Hyaline Casts,Urine < 1 /hpf (0-1); Ketones,Urine Negative (Negative); Leukocyte Esterase,Urine Negative (Negative); Nitrite,Urine Negative (Negative); PH,Urine 5.5 (5.0-7.0); Protein,Urine Negative (Neg - Trace); RBC,Urine 2 /hpf (0-3); Specific Gravity,Urine 1.024 (1.001-1.035); Squamous Epithelial Cell,Urine 2 /hpf (0-5); Urobilinogen,Urine Negative mg/dL (0.0-1.0); WBC,Urine 2 /hpf (0-5)
[2025-03-11 08:48] LABS: Glucose Estimated Average 111 mg/dL (80-131); Hemoglobin A1C 5.5 % Hgb (4.8-6.0)
[2025-03-11 08:54] LABS: Parathyroid Hormone Intact 118.8 pg/ml (18.5-88.0)
[2025-03-11 08:55] LABS: Vitamin D 25 Hydroxy Total 45.2 ng/mL (7.3-40.2)
[2025-03-11 08:56] LABS: Albumin, Serum 4.4 gm/dL (3.4-4.8); Anion Gap 11 (7-16); BUN/Creatinine Ratio 28 Ratio (12-20); Blood Urea Nitrogen 28 mg/dL (9-23); Calcium 9.4 mg/dL (8.3-10.6); Calcium (Corrected) 9.4 mg/dL (8.5-10.1); Carbon Dioxide 26.4 mMol/L (20.0-31.0); Chloride 103 mMol/L (98-107); Creatinine (Component) 1.0 mg/dL (0.6-1.3); Glucose 125 mg/dL (74-106); Osmolality,Calculated 285 (275-295); Phosphorous 3.0 mg/dL (2.4-5.1); Potassium 3.8 mMol/L (3.4-5.1); Sodium 140 mMol/L (136-145); Uric Acid 6.9 mg/dL (3.1-7.8); eGFR 59 See Note
== END | disposition home or self-care (01) ==
LOC: COPL 06:40
PROVIDERS: PCP Family Medicine; Referring Provider Internal Medicine; Visit Provider Internal Medicine
DX: E11.9 Type 2 diabetes mellitus without complications (principal); N20.0 Calculus of kidney; N23 Unspecified renal colic; I10 Essential (primary) hypertension; E03.9 Hypothyroidism, unspecified
CPT/HCPCS: 36415; 80069; 81001; 82306; 83036; 83970; 84550; 85025

== ENCOUNTER 2025-04-15 09:29 | Outpatient (AMB) | payer MEDICARE, BC, SELFPAY ==
--- NOTE | 2025-04-15 09:49 | ORTHONT_ITS ---
Vital signs 04/15/25 09:52 Height 1.6 m Height Method Stated Weight 85.445 kg Weight Measurement Method Standing Scale BMI 33.3 BP 106/62 Blood Pressure Source Automatic Cuff Blood Pressure Location Left Upper Arm Position Sitting Respiration 18 Pulse 78 Pulse Source Monitor Temp 97.2 F Temp Source Temporal Artery Scan Pulse Oximetry (%) 95 Oxygen Delivery Method Room Air Med/Allergies Allergies & Medications Allergies adhesive tape Allergy (Severe, Verified 04/15/25 09:52) SKIN BLISTERS, SKIN PEELS WHEN PULLING OFF Sulfa (Sulfonamide Antibiotics) Allergy (Severe, Verified 04/15/25 09:52) Hives Medication Reconciliation [id number]-[id number]-Ca carb-vit K 18 mg iron-400 mcg-500 mg tablet (Women's Multivitamin) 1 tab PO QDAY 10/09/18 [History Confirmed 04/15/25] alendronate 70 mg tablet (Fosamax) 70 mg PO QWEEK 01/03/23 [History Confirmed 04/15/25] potassium citrate 10 mEq (1,080 mg) tablet,extended release 2,160 mg PO BID 01/03/23 [History Confirmed 04/15/25] ascorbic acid (vitamin C) 500 mg tablet (Vitamin C) 500 mg PO DAILY 03/10/23 [History Confirmed 04/15/25] folic acid-vit B6-vit B12 2.5 mg-25 mg-2 mg tablet 1 tab PO DAILY 03/10/23 [History Confirmed 04/15/25] trazodone 100 mg tablet 100 mg PO HS 03/10/23 [History Confirmed 04/15/25] acetaminophen 500 mg tablet (Acetaminophen Extra Strength) 1,000 mg (2 x 500 mg) PO Q6H PRN pain #90 tabs 02/12/25 [Rx Confirmed 04/15/25] amitriptyline 10 mg tablet 10 mg PO HS 02/12/25 [History Confirmed 04/15/25] aspirin 81 mg tablet,delayed release 81 mg PO BID #60 tabs 02/12/25 [Rx Confirmed 04/15/25] carvedilol 6.25 mg tablet (Coreg) 6.25 mg PO Q12H 02/12/25 [History Confirmed 04/15/25] doxycycline hyclate 100 mg tablet 100 mg PO BID #14 tabs 08/20/25 [Rx Confirmed 04/15/25] levothyroxine 150 mcg tablet 150 mcg PO DAILY 02/12/25 [History Confirmed 04/15/25] levothyroxine 25 mcg tablet 25 mcg PO MONFRI 02/12/25 [History Confirmed 04/15/25] losartan 100 mg-hydrochlorothiazide 12.5 mg tablet 1 tab PO DAILY 02/12/25 [ History Confirmed 04/15/25] nitrofurantoin monohydrate/macrocrystals 100 mg capsule 100 mg PO DAILY 02/12/25 [History Confirmed 04/15/25] sennosides 8.6 mg-docusate sodium 50 mg tablet (Senna-S) 1 tab-cap PO QDAY #30 tabs 02/12/25 [Rx Confirmed 04/15/25] cyclobenzaprine 5 mg tablet 5 mg PO TID PRN muscle spasm #60 tabs 02/20/25 [Rx Confirmed 04/15/25] gabapentin 300 mg capsule 300 mg PO .qhs #30 caps 03/04/25 [Rx Confirmed 04/15/25] oxycodone 5 mg tablet 5 mg PO Q6H PRN pain #28 tabs 03/04/25 [Rx Confirmed 04/15/25] Exam Exam Patient is in no acute distress and is cooperative with the examination today. Breathing is nonlabored. Patient has a normal mood and affect. Bilateral extremities were evaluated and demonstrates sensation intact to light touch. Palpable pedal pulses are present. No significant edema is present. Bilateral hips were examined. The patient has no pain with log roll of the hips. Internal rotation to 30 degrees and external rotation to 30 degrees is painless. Negative FADIR. Right knee was examined today. The right knee is in reasonable alignment. Range of motion from 0-120 degrees. Knee is stable to varus and valgus as well as AP translation with <5mm. Patient has a negative McMurrays. There is no pain with patellofemoral compression and no crepitus noted. The knee is nontender to palpation. Left knee incision is clean dry intact. Range of motion 0 to 105 degrees Assessment and Plan Problem List (1) Arthritis of left knee: Status: Acute Plan: Patient is a pleasant 74-year-old female with left knee pain and left knee arthritis. She is status post left total knee replacement and is doing well. We will see her back in 3 months for routine followup. We will renew her outpatient therapy. Advanced Care Planning Discussion Advance care planning discussed with:: patient Office Procedures GNS Level of Care Nursing/Assessment Patient Status: Established Patient Nursing Assessment/Reassesment: Medication Reconciliation, Update PMH in EMR and Vital Signs Coordination of Care: Complex Care and Chronic Disease 1-5, Education Complex Pt/Fam, Consent,records obtained, informed consent, Results/Orders obtained and Staff clarify orders Established Patient Charge Established Patient Point Assignment: 95 Established Patient Point Charge: EP Level 3 (80-115) MA Intake Visit Data Collection New Patient or Established: Established Patient (seen at [facility] within 3 years) Reason for Visit:: L TKA FOLLOW UP Seen by Clinical Staff ONLY (RN/MA): No Basket Filler Required: No PCP or OBGYN visit in last 3 months: Yes Hx Now: No Do You Feel Safe at Home: Yes Authorities Contacted: N/A Questionairres Past Medical History Past Medical History Have you ever been diagnosed with any of the following: Neurological Problems Cerebrovascular Accident (CVA): No Transient Ischemic Attacks (TIA): No Dementia: No Alzheimer's Disease: No Parkinson's Disease: No Brain Tumor: No Meningitis: No Seizures: No Epilepsy: No Multiple Sclerosis: No Cerebral Palsy: No Amyotrophic Lateral Sclerosis (ALS/Radhika Gehrig's): No Guillain-Ellsworth Syndrome: No Spina Bifida: No Paralysis: No Peripheral Neuropathy: Yes Rey's Palsy: No Subdural Hematoma: No Migraine: Yes Head Trauma: No Spinal Cord Injury: No Traumatic Brain Injury: No Cardiology Problems Myocardial Infarction: No Cardiac Arrhythmia: No Atrial Fibrillation: No Angina: No Heart Murmur: No Coronary Artery Disease: No Atherosclerotic Heart Disease: No Peripheral Vascular Disease: No Hypercholesterolemia: No Aneurysm: No Congestive Heart Failure: No Congenital Heart Disease: No Valvular Heart Disease: No Rheumatic Fever: No Cardiomyopathy: No Edema: Yes Pericarditis: No Cellulitis: No Deep Vein Thrombosis: No Hypertension: Yes Hypotension: No Varicose Veins: Yes Respiratory Problems Chronic Obstructive Pulmonary Disease (COPD): No Asthma: No Bronchitis: No Emphysema: No Pneumonia: No Pulmonary Fibrosis: No Tuberculosis: No Pulmonary Embolism: No Pulmonary Edema: No Sleep Apnea: No CPAP Dependent: No Respiratory Aspiration: No Dyspnea: No Orthopnea: No Hx Cough: No Cough: No Wheezing: No Chest Deformities: No Smoking: No Smoking Cessation Counseling: No Smoking Exposure: No Tobacco Use: No Clubbing: No Exposure to Respiratory Irritants: No Intubation: No Stomache/Intestinal Problems Liver Cancer: No Hepatitis: No Cirrhosis: No Pancreatic Cancer: No Pancreatitis: Yes Celiac Disease: No Gall Bladder Disease: Yes (cholecystectomy) Gastrointestinal Bleed: No Esophageal Varices: No Costello's Esophagus: No Colitis: Yes Ulcerative Colitis: No Diverticulitis: No Diverticulosis: No Ulcer: No Colorectal Cancer: No Irritable Bowel: No Crohn's Disease: No Obstructive Bowel: No Hiatal Hernia: No Hemorrhoids: No Gastroesophageal Reflux Disease: No Polyps: No Obesity: No Genital/Urinary Problems Chronic Kidney Disease: No Renal Disease: No Kidney Stones: Yes (lythotripsyx7) Polycystic Kidney Disease: No Neurogenic Bladder: No Inguinal Hernia: No Dialysis: No Reproductive Problems Breast Cancer: No Endometriosis: No Fibroids: No Genital Herpes: No Gonorrhea: No Pelvic Inflammatory Disease: No Polycystic Ovarian Syndrome: No Previous Pregnancies: Yes () Syphilis: No Uterine Prolapse: No Musculoskeletal Problems Muscular Dystrophy: No Myasthenia Gravis: No Marfan's Syndrome: No Bone Cancer: No Arthritis: Yes Rheumatoid Arthritis: No Osteoporosis: No Degenerative Disk Disease: No Gout: Yes Scoliosis: No Carpal Tunnel Syndrome: Yes (and trigger finger release ) Fibromyalgia: No Fractures: Yes Degenerative Joint Disease: No Osteomyelitis: No Poliovirus: No Head,Eye,Nose,Throat Problems Cataracts: No Glaucoma: No Blind: No Retinal Detachment: No Macular Degeneration: No Chronic Ear Infections: No Deafness: No Eye Prosthesis: No Endocrine Problems Diabetes Mellitus Type 1: No Diabetes Mellitus Type 2: Yes (History of no longer taking medication) Hypoglycemia: No Brownwood's Syndrome: No Barron's Disease: No Hyperthyroidism: No Hypothyroidism: Yes Thyroid Cancer: No Parathyroid Disease: No Pituitary Disease: No Systemic Lupus Erythematosus: No Syndrome of Inappropriate Antidiuretic Hormone: No Adrenal Disease: No Graves' Disease: No Blood Problems Anemia: No Leukemia: No Hemophilia: No Thalassemia: No Sickle Cell Disease: No Clotting Problems: No Psychologic Problems Schizophrenia: No Recreational Drug Use: No Bipolar Disorder: No Depression: No Anxiety: No Behavior Problems: No Self-Mutilation: No Attention Deficit Disorder: No Attention Deficit Hyperactivity Disorder: No Depression: No Post Traumatic Stress Disorder: No Eating Disorder: No Other Problems Hospitalization: Yes Autoimmune Disease: No Down Syndrome: No Autism: No Developmental Delay: No Cosmetic Surgery: No Shingles: No Falls: No Blood Transfusions: No Blood Transfusion Reaction: No Anesthesia Reactions: No Organ Transplant: No Chemotherapy: No Radiation Therapy: No Hyperbaric Therapy: No MRSA: No VRSA: No Vancomycin-Resistant Enterococci: No Human Immunodeficiency Virus (HIV): No Chicken Pox: Yes Measles: Yes Mumps: Yes Rubella (Stateless Measles): No Pertussis: No Klebsiella Pneumoniae Carbapenemase Producing Bacteria: No Clostridium Difficile: No Hepatitis A: No Hepatitis B: No Hepatitis C: No Communicable Disease: No Cancer: No Cervical Cancer: No Lung Cancer: No Ovarian Cancer: No Surgical History Angioplasty: No Appendectomy: No Bariatric Surgery: No Breast Surgery: No Cancer Surgery: No Carotid Endarterectomy: No Cholecystectomy: No Colectomy: No Colostomy: No Coronary Artery Bypass Graft: No Valve Replacement: No Herniorrhaphy: No Total Hip Replacement: No Total Knee Replacement: Yes (RIGHT KNEE) Hysterectomy: No Pacemaker: No Sinus Surgery: No Splenectomy: No TAHBSO-Total Abdominal Hysterectomy: No Thyroidectomy: Yes (Parathyroidectomy 2011) Ureter Stent: No Subjective Visit Visit for: follow up visit and knee Immunization / Flu Flu Vaccine in the Last 12 Months: Yes Flu Vaccine Exclusion Criteria: Allergy to Eggs History of Present Illness Chief complaint: LEFT TKA FOLLOW UP Jasmin is a pleasant 74-year-old female with left knee pain. She is status post left total knee replacement and is 7 weeks postop. She is doing well. Personal History Occupation: RETIRED [employer] provided: No Pain Pain level (0-10): 0 Pain location: inside (medial) and anterior Pain quality: sharp Pain timing: night Associated signs & symptoms: none Ambulatory data Ambulatory device: none Treatments Improvement with previous injections: No Improvement with PT: No Improvement with NSAIDS: no Review of Systems Review of Systems: All systems negative unless otherwise noted in HPI.
[2025-04-15 09:52] VITALS: BP 106/62; PULSE 78; RESP 18; TEMP 36.2; O2SAT 95; BMI 33.3
--- NOTE | 2025-04-15 10:07 | XR_ITS ---
EXAMINATION: Bilateral AP knees single view PA lateral axial left knee 3 views TECHNIQUE: Bilateral AP knees standing single view Left knee PA standing flexion, standing lateral, axial left knee 3 views total 4 views Date and time: April 15, 2025, 1016 hours INDICATIONS: Post knee replacement February 17, 2025 FINDINGS: Moderate osteopenia. Total left knee arthroplasty. Satisfactory alignment. No loosening of the prosthetic devices No patellar dislocation IMPRESSION: Total left knee arthroplasty with satisfactory alignment.
== END 2025-04-15 10:12 | disposition home or self-care (01) ==
PROVIDERS: Supervising Provider Orthopaedic Surgery Adult Reconstructive Orthopaedic Surgery; Visit Provider Orthopaedic Surgery Adult Reconstructive Orthopaedic Surgery
DX: Z47.1 Aftercare following joint replacement surgery (principal); Z96.652 Presence of left artificial knee joint; M25.562 Pain in left knee
CPT/HCPCS: 73564; 99213; G0463

== ENCOUNTER 2025-04-19 20:50 | Emergency (ER) | payer MEDICARE, BC, SELFPAY ==
[2025-04-19 20:52] VITALS: BMI 30.9
[2025-04-19 20:57] VITALS: BP 146/87; PULSE 96; RESP 20; TEMP 36.8; O2SAT 98
--- NOTE | 2025-04-19 20:58 | XR_ITS ---
Examination: Hand, left 2 views Technique: AP lateral left hand 2 views INDICATIONS: Ground-level fall today with injury of the hand and wrist, hand pain wrist pain. FINDINGS: Severe osteopenia Acute impacted intra-articular comminuted fractures distal radial metaphysis On the lateral view dorsal displacement of the distal fracture fragment at least 6 mm Fractures distal ulna in addition Carpal bones intact IMPRESSION: Acute comminuted intra-articular impacted angulated fractures distal radial metaphysis
--- NOTE | 2025-04-19 20:58 | XR_ITS ---
EXAMINATION: Left wrist 2 views TECHNIQUE: AP lateral left wrist 2 views Date and time: April 19, 2025, 2100 hours INDICATIONS: Ground-level fall today with injury to wrist, wrist pain. FINDINGS: Acute comminuted intra-articular impacted fractures distal radial metaphysis, distal articulating surface of the radius is angulated dorsally and mild dorsal displacement of the distal fracture fragment Fractures distal ulna including through the ulnar styloid tip Carpal bones intact IMPRESSION: Acute comminuted intra-articular impacted fractures distal radial metaphysis
[2025-04-19] MEDS: MORPHINE SULF INJ 4 MG/ML VIAL IM (21:58)
[2025-04-19 22:44] VITALS: BP 115/85; PULSE 97; RESP 14; TEMP 37; O2SAT 99
[2025-04-19] MEDS: MORPHINE SULF INJ 4 MG/ML VIAL 2 MG IVP (22:55)
[2025-04-19] MEDS: MIDAZOLAM INJ 1 MG/ML VIAL 2 ML 2.5 MG IVP (22:56)
[2025-04-19] MEDS: LIDOCAINE INJ PF 2% 5 ML VIAL INFL (22:57)
--- NOTE | 2025-04-19 22:57 | PD.EDRME ---
Rapid Medical Screening Exam RME Arrival date/time: 04/19/25 20:50 This is a case of 74-year-old female with no medical history came into the emergency room due to left wrist injury history of present illness started 1 hour prior to arrival in the emergency room patient fell and landed on the left wrist sustaining pain and swelling no other injury noted Chief Complaint: Hand/Wrist Problems Time Seen by Provider: 04/19/25 20:54 Vital signs: Vital Signs Temperature 98.2 F 04/19/25 20:57 Pulse Rate 96 04/19/25 20:57 Respiratory Rate 20 04/19/25 20:57 Blood Pressure 146/87 H 04/19/25 20:57 Pulse Oximetry (%) 98 04/19/25 20:57 Oxygen Delivery Method Room Air 04/19/25 20:57 Exam: Noted moderate tenderness and swelling on the left wrist Clinical Impression: Left wrist fracture
[2025-04-19 23:04] VITALS: BP 148/79; PULSE 94; RESP 14; O2SAT 99
--- NOTE | 2025-04-19 23:10 | XR_ITS ---
EXAMINATION: Right wrist 2 views TECHNIQUE: AP lateral right wrist 2 views Date and time: April 19, 2025, 11:40 p.m. INDICATIONS: Post reduction films compared to wrist fracture images April 19, 2025 2100 hours. FINDINGS: Improvement in alignment comminuted fractures distal radial metaphysis Fractures distal ulna again noted IMPRESSION: Significant improvement in alignment comminuted fractures distal radius
[2025-04-19] MEDS: MIDAZOLAM INJ 1 MG/ML VIAL 2 ML 2 MG IVP (23:13)
--- NOTE | 2025-04-19 23:13 | PD.EDFALL ---
ED Fall Injury RME/HPI General Chief Complaint: Hand/Wrist Problems Stated Complaint: LEFT WRIST PAIN, S/P FALL Time Seen by Provider: 04/19/25 20:54 Arrival date/time: 04/19/25 20:50 RME / HPI RME / HPI Narrative: 04/19/25 20:50 This is a case of 74-year-old female with no medical history came into the emergency room due to left wrist injury history of present illness started 1 hour prior to arrival in the emergency room patient fell and landed on the left wrist sustaining pain and swelling no other injury noted DR. FITZGERALD MAIN ED EVALUATION: Patient s/p falling onto outstretched non-dominant hand presents with obvious deformity. No paresthesia or weakness of the digits. PMH: Migraine, Edema, Hypertension, Varicose Veins, Pancreatitis, Gall Bladder Disease, Colitis, Kidney Stones, Arthritis, Gout, Carpal Tunnel Syndrome, Diabetes Mellitus Type 2, Hypothyroidism PSH: Cholecystectomy Allergies: Adhesive Tape, Sulfa Social: Non-drinker, Non-smoker, No illicit drug abuse Exam: Noted moderate tenderness and swelling on the left wrist Impression: Left wrist fracture Related Data Home Medications ?Medication ?Instructions ?Recorded ?Confirmed [id number] carb-vit K 1 tab PO QDAY 10/09/18 04/15/25 18 mg iron-400 mcg-500 mg tablet (Women's Multivitamin) alendronate 70 mg tablet (Fosamax) 70 mg PO QWEEK 01/03/23 04/15/25 potassium citrate 10 mEq (1,080 2,160 mg PO BID 01/03/23 04/15/25 mg) tablet,extended release ascorbic acid (vitamin C) 500 mg 500 mg PO DAILY 03/10/23 04/15/25 tablet (Vitamin C) folic acid-vit B6-vit B12 2.5 1 tab PO DAILY 03/10/23 04/15/25 mg-25 mg-2 mg tablet trazodone 100 mg tablet 100 mg PO HS 03/10/23 04/15/25 amitriptyline 10 mg tablet 10 mg PO HS 02/12/25 04/15/25 carvedilol 6.25 mg tablet (Coreg) 6.25 mg PO Q12H 02/12/25 04/15/25 levothyroxine 150 mcg tablet 150 mcg PO DAILY 02/12/25 04/15/25 levothyroxine 25 mcg tablet 25 mcg PO MONFRI 02/12/25 04/15/25 losartan 100 1 tab PO DAILY 02/12/25 04/15/25 mg-hydrochlorothiazide 12.5 mg tablet nitrofurantoin 100 mg PO DAILY 02/12/25 04/15/25 monohydrate/macrocrystals 100 mg capsule Previous Rx's ?Medication ?Instructions ?Recorded acetaminophen 500 mg tablet 1,000 mg (2 x 500 mg) PO Q6H PRN 02/12/25 (Acetaminophen Extra Strength) pain #90 tabs aspirin 81 mg tablet,delayed 81 mg PO BID #60 tabs 02/12/25 release doxycycline hyclate 100 mg tablet 100 mg PO BID #14 tabs 02/12/25 sennosides 8.6 mg-docusate sodium 1 tab-cap PO QDAY #30 tabs 02/12/25 50 mg tablet (Senna-S) cyclobenzaprine 5 mg tablet 5 mg PO TID PRN muscle spasm #60 02/20/25 tabs gabapentin 300 mg capsule 300 mg PO .qhs #30 caps 03/04/25 oxycodone 5 mg tablet 5 mg PO Q6H PRN pain #28 tabs 03/04/25 hydrocodone 5 mg-acetaminophen 325 1 tab PO Q6H PRN pain #12 tabs 04/19/25 mg tablet Allergies Allergy/AdvReac Type Severity Reaction Status Date / Time adhesive tape Allergy Severe SKIN Verified 04/19/25 20:52 BLISTERS, SKIN PEELS WHEN PULLING OFF Sulfa (Sulfonamide Allergy Severe Hives Verified 04/19/25 20:52 Antibiotics) Review of Systems Review of Systems Systems Reviewed: All systems reviewed, normal except as documented Past Medical History Past Medical History NEUROLOGIC: Positive Neurological Disorders and Migraine; Negative Spina Bifida CARDIAC: Positive Cardiac Disorders, Edema, Hypertension and Varicose Veins GASTROINTESTINAL: Positive Gastrointestinal Disorders, Pancreatitis, Gall Bladder Disease (cholecystectomy) and Colitis GENITOURINARY: Positive Genitourinary Disorders and Kidney Stones (lythotripsyx7) REPRODUCTIVE: Positive Previous Pregnancies () MUSCULOSKELETAL: Positive Musculoskeletal Disorders, Arthritis, Gout, Carpal Tunnel Syndrome (and trigger finger release ) and Fractures ENDOCRINE: Positive Endocrine Disorders, Diabetes Mellitus Type 2 (History of no longer taking medication) and Hypothyroidism OTHER HISTORY: Positive Hospitalization, Chicken Pox, Measles and Mumps Family History FAMILY HISTORY: Positive Family Respiratory Disorders, Family Cardiac Disorders, Family Gastrointestinal Problems, Family Cancer and Family Surgery Surgical History SURGICAL: Positive Thyroidectomy (Parathyroidectomy 2011), Tonsillectomy, Abdominal Surgery (lap band), Gastric Bypass Surgery, Joint Replacement and Tubal Ligation Social History SECOND HAND EXPOSURE: Yes ED Exam Narrative Physical exam: GEN. APPEARANCE: The patient is alert awake oriented X-3 under moderate distress c/o left wrist pain, lying down comfortably, does not look ill/toxic. Patient has good eye contact. Patient is cooperative. VITALS: All vitals were reviewed and the pulse ox is 99%, which is normal according to my interpretation HEENT: Normocephalic, atraumatic and nontender. Pupils are equal and reactive. Oral mucosa is moist. NECK: Supple, nontender, no meningismus, no JVD. There is no thyromegaly and no lymphadenopathy. CHEST: Nontender on palpation no deformity and no crepitus. CARDIOVASCULAR: Heart regular rhythm, no murmur or gallop rub or extra beats. LUNGS: Clear to auscultation bilaterally with symmetrical chest rise. No laboring tachypnea or wheezing. No intercostal subcostal retraction. No rales and no rhonchi. ABDOMEN: Soft, flat, nontender to palpation, no guarding or rebound tenderness. There are no abnormal masses palpated. No pulsatile masses or bruits. Active and normal bowel sounds. EXTREMITIES: LUE with dorsal prominence of distal radius markedly tender with LROM, distal function intact.Normal inspection and palpation. No edema. No cyanosis. Patient is able to move all 4 extremities well SKIN: Warm and dry, no rashes noted. MUSCULOSKELETAL: No lumbar or midline bony tenderness. There is no CVA tenderness. No paraspinal muscle spasm or tenderness. NEURO: Cranial nerves II through XII grossly intact. There are no focal neurologic deficits noted. GCS is 15 PSYCHIATRIC: Patient is in normal mood and affect, cooperative. LYMPHATICS: No major lymphadenopathy noted. Course Quality Measures none Orders Category Date Time Status XR hand LT 2V Stat Exams 04/19/25 20:58 Completed XR wrist LT 2V Stat Exams 04/19/25 20:58 Completed XR wrist LT 2V Stat Exams 04/19/25 23:10 Completed Lidocaine 2% Pf 5 ml [Xylocaine 2% Pf 5 ml] Med 04/19/25 21:41 Discontinued 5 ml INFL X1 ONE Midazolam Inj [Versed Inj] Med 04/19/25 23:07 Discontinued 2 mg .ROUTE .STK-MED ONE Midazolam Inj [Versed Inj] Med 04/19/25 23:09 Discontinued 2 mg IVP X1 ONE Midazolam Inj [Versed Inj] Med 04/19/25 22:41 Discontinued 2.5 mg IVP X1 ONE Morphine* Inj Med 04/19/25 22:41 Discontinued 2 mg IVP X1 ONE Morphine* Inj Med 04/19/25 21:41 Discontinued 4 mg IM X1 ONE Sodium Chloride 0.9% 1000 ml [Ns] 1,000 ml Med 04/19/25 23:20 Discontinued IV 999 mls/hr Vital Signs Vital signs: Vital Signs Temperature 98.2 F 04/19/25 20:57 Pulse Rate 96 04/19/25 20:57 Respiratory Rate 20 04/19/25 20:57 Blood Pressure 146/87 H 04/19/25 20:57 Pulse Oximetry (%) 98 04/19/25 20:57 Oxygen Delivery Method Room Air 04/19/25 20:57 PROCEDURES: Orthopedic Fracture Reduction Fracture #1: Time Out Performed: Yes Side: left Fracture Reduction Location: radius Analgesia: hematoma block Technique: traction/counter-traction Post Reduction X-rays Demonstrate: anatomical reduction Post-reduction neuro exam: intact Post-reduction vascular exam: intact Splint Applied: Yes Patient Tolerated Procedure: well and no complications Additional Comments: Closed reduction with low-dose morphine and versed with 12 cc lidocaine after left wrist was prepped. Patient underwent traction/counter traction with closed reduction accomplished. No complications. Fall MDM Narrative MDM Narrative:: Scribe Attestation: IRosa, am scribing for and in the presence of Dr. Fitzgerald. Provider Notation: Although this document has been carefully reviewed, there may still be some phonetic and other typographical errors. These errors are purely grammatical due to imperfections in the software program and should not be construed in any way to compromise the substance of the patient's medical care during this visit. Patient s/p falling onto outstretched non-dominant hand presents with obvious deformity. No paresthesia or weakness of the digits. Please see PE findings. Patient underwent routine imaging demonstrating evidence of distal radial fracture appears comminuted extending to the joint surface, 30 degree angulation of the dorsal plane. Reduction via ring block without incident, placed in thumb spicca splint with distal function intact. Final diagnosis includes distal radial fracture. Patient willl be discharged home on RICE, close orthopedic F/U anticipated Patient data External records reviewed:: [facility] previous records (Reviewed prior ED records from 04/25/21. Patient was seen for Hip pain.) Clinical information provided by:: patient Social determinants that could affect healthcare access:: none Patient has the following chronic illnesses:: Migraine, Edema, Hypertension, Varicose Veins, Pancreatitis, Gall Bladder Disease, Colitis, Kidney Stones, Arthritis, Gout, Carpal Tunnel Syndrome, Diabetes Mellitus Type 2, Hypothyroidism How is presenting disease/condition affected by chronic disease/condition?: uneffected by Evaluation data The following diagnostics were reviewed and interpreted by me:: radiology exam(s) Lab and/or radiology exams considered but not ordered:: None Interpretation Summary: RADIOLOGY Left Wrist X-Ray: FINDINGS: Improvement in alignment comminuted fractures distal radial metaphysis Fractures distal ulna again noted IMPRESSION: Significant improvement in alignment comminuted fractures distal radius Left Hand X-Ray: FINDINGS: Severe osteopenia Acute impacted intra-articular comminuted fractures distal radial metaphysis On the lateral view dorsal displacement of the distal fracture fragment at least 6 mm Fractures distal ulna in addition Carpal bones intact IMPRESSION: Acute comminuted intra-articular impacted angulated fractures distal radial metaphysis Left Wrist X-Ray: FINDINGS: Acute comminuted intra-articular impacted fractures distal radial metaphysis, distal articulating surface of the radius is angulated dorsally and mild dorsal displacement of the distal fracture fragment Fractures distal ulna including through the ulnar styloid tip Carpal bones intact IMPRESSION: Acute comminuted intra-articular impacted fractures distal radial metaphysis Medications / Prescriptions Medications or Prescriptions considered but not ordered:: None Medication administrations:: Medication Administration History Discontinued Medications Sodium Chloride (Ns) 1,000 mls @ 999 mls/hr IV .Q1H1M ONE Stop: 04/20/25 00:20 Last Admin: 04/19/25 23:22 Dose: 999 mls/hr Documented By: JENNIFER Lidocaine HCl (Lidocaine Inj Pf 2% 5 Ml Vial) 5 ml INFL X1 ONE Stop: 04/19/25 21:42 Last Admin: 04/19/25 22:57 Dose: 5 ml Documented By: JENNIFER Comments: administered by provider Dhaval Midazolam HCl (Midazolam Inj 1 Mg/Ml Vial 2 Ml) 2.5 mg IVP X1 ONE Stop: 04/19/25 22:42 Last Admin: 04/19/25 22:56 Dose: 2.5 mg Documented By: JENNIFER Midazolam HCl (Midazolam Inj 1 Mg/Ml Vial 2 Ml) Confirm Administered Dose 2 mg .ROUTE .STK-MED ONE Stop: 04/19/25 23:08 Last Admin: 04/19/25 23:12 Dose: Not Given Documented By: JENNIFER Non-Admin Reason: Duplicate Medication on eMAR Midazolam HCl (Midazolam Inj 1 Mg/Ml Vial 2 Ml) 2 mg IVP X1 ONE Stop: 04/19/25 23:10 Last Admin: 04/19/25 23:13 Dose: 2 mg Documented By: JENNIFER Morphine Sulfate (Morphine Sulf Inj 4 Mg/Ml Vial) 4 mg IM X1 ONE Stop: 04/19/25 21:42 Last Admin: 04/19/25 21:58 Dose: 4 mg Documented By: GRADY Morphine Sulfate (Morphine Sulf Inj 4 Mg/Ml Vial) 2 mg IVP X1 ONE Stop: 04/19/25 22:42 Last Admin: 04/19/25 22:55 Dose: 2 mg Documented By: JENNIFER See above if any Consultations Consultation(s) initiated? (list below): No Diagnosis Fall Differential Diagnosis: syncope, fracture of wrist and compression fracture Most likely diagnosis given after review of the tests above:: Distal Radial Fracture, Left Admission Indicated Admission indicated?: not indicated Explain why admission is indicated or not indicated:: Patient does not meet admission criteria Admission Request Was there a request for admission?: No Disposition Plan Disposition Plan: Discharge Discharge Attestation Discharge Attestation: The patient and all family members were given an opportunity to ask questions and understood the discharge instructions. Discharge instructions specifically effects, indications for sooner follow up or return to the emergency department, and the expected course of current diagnosis. Patient condition: Stable Discharge Plan Plan Patient Disposition: HOME (Self Care) Discharge Disposition comment: STABLE Prescriptions/Referrals Prescriptions/Med Rec: New hydrocodone-acetaminophen 5-325 mg tablet 1 tab PO Q6H MDD max 4 tabs per day PRN (Reason: pain) Qty: 12 0RF No Action oxycodone 5 mg tablet 5 mg PO Q6H MDD 20 PRN (Reason: pain) Qty: 28 0RF Rx Instructions: z96.65 gabapentin 300 mg capsule 300 mg PO .qhs Qty: 30 0RF potassium citrate 10 mEq (1,080 mg) tablet extended release 2,160 mg PO BID alendronate [Fosamax] 70 mg tablet 70 mg PO QWEEK Women's Multivitamin 18 mg iron-400 mcg-500 mg Tablet 1 tab PO QDAY ascorbic acid (vitamin C) [Vitamin C] 500 mg Tablet 500 mg PO DAILY folic acid-vit B6-vit B12 2.5-25-2 mg Tablet 1 tab PO DAILY trazodone 100 mg Tablet 100 mg PO HS levothyroxine 150 mcg tablet 150 mcg PO DAILY Patient Comments: TAKE 1 TABLET BY MOUTH EVERY DAY levothyroxine 25 mcg tablet 25 mcg PO Patient Comments: TAKE 1 TABLET (25 MCG) BY ORAL ROUTE 3 TIMES PER WEEK. TAKE ON MONDAY, MONDAY, AND MONDAY losartan-hydrochlorothiazide 100-12.5 mg tablet 1 tab PO DAILY Patient Comments: TAKE 1 TABLET BY MOUTH EVERY DAY nitrofurantoin monohyd/m-cryst 100 mg capsule 100 mg PO DAILY Patient Comments: TAKE 1 CAPSULE BY MOUTH EVERYDAY AT BEDTIME amitriptyline 10 mg tablet 10 mg PO HS Patient Comments: TAKE 1 TABLET BY MOUTH EVERYDAY AT BEDTIME carvedilol [Coreg] 6.25 mg tablet 6.25 mg PO Q12H Rx Instructions: must administer with a meal/food acetaminophen [Acetaminophen Extra Strength] 500 mg tablet 1,000 mg PO Q6H MDD 1000mg PRN (Reason: pain) Qty: 90 0RF aspirin 81 mg tablet,delayed release (DR/EC) 81 mg PO BID Qty: 60 0RF sennosides-docusate sodium [Senna-S] 8.6-50 mg tablet 1 tab-cap PO QDAY Qty: 30 0RF doxycycline hyclate 100 mg tablet 100 mg PO BID Qty: 14 0RF cyclobenzaprine 5 mg tablet 5 mg PO TID PRN (Reason: muscle spasm) Qty: 60 0RF Referrals: Alexandria Rodriguez MD [Primary Care Provider, Family Practice] - In 1 week Problem List Clinical Impression: Distal radius fracture, left Impression comment: Closed left distal radial fracture Patient/Caregiver Discharge Instructions Discharge Activity: activity as tolerated Education Materials: Wrist Fracture Additional Instructions: Ice elevation/medication as directed. Follow with orthopedic physician within 7 to 10 days. Return if worsening Print Language: Kyrgyz Stand Alone Forms: [employer] Award Info., Patient Portal Info Letter
[2025-04-19] MEDS: SODIUM CHLORIDE 0.9% 1000 ML 1,000 ML 999 ML IV (23:22)
[2025-04-20 00:32] VITALS: BP 138/85; PULSE 85; RESP 14; TEMP 2.7; TEMP 36.8; O2SAT 99
--- NOTE | 2025-04-20 06:57 | PD.EDADDENDU ---
Emergency Room Addendum Addendum Narrative: I PLaced an order for norco 5mg/325mg for DR. Coelho because he was not able to put order in computer. I had no contact with this patient.
== END 2025-04-20 00:33 | disposition home or self-care (01) ==
PROVIDERS: Emergency Provider Emergency Medicine; PCP Family Medicine
DX: S52.572A Other intraarticular fracture of lower end of left radius, initial encounter for closed fracture (principal); S69.92XA Unspecified injury of left wrist, hand and finger(s), initial encounter; W17.89XA Other fall from one level to another, initial encounter
CPT/HCPCS: 25605; 73100; 73120; 96361; 96372; 96374; 96375; 99284; J2250; J2270; J7030

== ENCOUNTER → 2025-04-23 | Outpatient (CLI) | payer MEDICARE, BC, SELFPAY ==
--- NOTE | 2025-04-23 10:45 | XR_ITS ---
Examination: Wrist, left 3 views Technique: Wrist AP, oblique, lateral 3 views Date and time of exam: April 23, 2025, 10:54 a.m., comparison April 19, 2025 INDICATIONS: Acute wrist fractures 5 days ago after falling FINDINGS: Stable alignment comminuted impacted intra-articular fractures distal radial metaphysis Fractures also distal ulna including ulnar styloid tip IMPRESSION: Stable alignment comminuted impacted intra-articular fractures distal radial metaphysis
--- NOTE | 2025-04-23 10:45 | XR_ITS ---
Examination: Hand, left 3 views Technique: Hand AP, oblique, lateral 3 views Date and time of exam: April 23, 2025, 1054 hours INDICATIONS: Patient fell 5 days ago with acute fractures distal radius distal ulna FINDINGS: Severe osteopenia. Acute comminuted impacted intra-articular fractures distal radial metaphysis Fractures distal ulna including off the ulnar styloid tip Bones of the hand intact IMPRESSION: Stable alignment acute comminuted impacted intra-articular fracture distal radial metaphysis
--- NOTE | 2025-04-23 10:45 | XR_ITS ---
Examination: Left elbow 3 views Technique: Elbow AP, oblique, lateral 3 views Exam date and time: April 23, 2025, 1054 hours INDICATIONS: Elbow pain months. 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
[2025-04-23 13:55] LABS: Collection Type, Urine Catheter; Squamous Epithelial Cell,Urine 0 /hpf (0-5)
[2025-04-23 16:46] LABS: Bacteria,Urine 1+; Bilirubin,Urine Negative (Negative); Blood,Urine 2+ (Negative); Color,Urine Drk-Yellow (Lt Yel-Yel); Glucose, Urine Negative (Negative); Ketones,Urine Negative (Negative); Leukocyte Esterase,Urine Positive (Negative); Nitrite,Urine Positive (Negative); PH,Urine 6.5 (5.0-7.0); Protein,Urine 1+ (Neg - Trace); RBC,Urine 82 /hpf (0-3); Specific Gravity,Urine 1.017 (1.001-1.035); Urobilinogen,Urine 3.0 mg/dL (0.0-1.0); WBC,Urine 1924 /hpf (0-5)
[2025-04-23 16:54] LABS: Clarity,Urine Cloudy (Clear/Hazy)
== END | disposition home or self-care (01) ==
PROVIDERS: PCP Family Medicine; Referring Provider Nurse Practitioner Gerontology; Visit Provider Nurse Practitioner Gerontology
DX: M19.022 Primary osteoarthritis, left elbow (principal); S52.92XA Unspecified fracture of left forearm, initial encounter for closed fracture; W19.XXXA Unspecified fall, initial encounter; N30.00 Acute cystitis without hematuria
CPT/HCPCS: 73080; 73110; 73130; 81001; 87077; 87086; 87186

== ENCOUNTER → 2025-06-11 | Outpatient (CLI) | payer MEDICARE, BC, SELFPAY ==
[2025-06-11 11:08] LABS: Anion Gap 14 (7-16); BUN/Creatinine Ratio 19 Ratio (12-20); Blood Urea Nitrogen 13 mg/dL (9-23); Calcium 8.2 mg/dL (8.3-10.6); Carbon Dioxide 25.4 mMol/L (20.0-31.0); Cardiac Risk Estimate 3.2 RATIO (3.7-5.6); Chloride 104 mMol/L (98-107); Cholesterol 211 mg/dL (132-200); Creatinine (Component) 0.7 mg/dL (0.6-1.3); Glucose 116 mg/dL (74-106); HDL Cholesterol 66 mg/dL (40-60); LDL Cholesterol,Calculated 113 mg/dL (0-130); Osmolality,Calculated 286 (275-295); Potassium 3.7 mMol/L (3.4-5.1); Sodium 143 mMol/L (136-145); Triglycerides 161 mg/dL (30-150); eGFR > 60 See Note
[2025-06-11 11:27] LABS: Glucose Estimated Average 105 mg/dL (80-131); Hemoglobin A1C 5.3 % Hgb (4.8-6.0)
== END | disposition home or self-care (01) ==
LOC: COPL 09:27
PROVIDERS: PCP Family Medicine; Referring Provider Family Medicine; Visit Provider Family Medicine
DX: E11.9 Type 2 diabetes mellitus without complications (principal)
CPT/HCPCS: 36415; 80048; 80061; 83036

== ENCOUNTER 2025-06-17 08:16 | Outpatient (AMB) | payer MEDICARE, BC, SELFPAY ==
--- NOTE | 2025-06-17 08:27 | PD.ORTHCLVIS ---
Vital signs 06/17/25 08:28 Height 1.63 m Height Method Stated Weight 81.221 kg Weight Measurement Method Standing Scale BMI 30.5 BP 109/62 Blood Pressure Source Automatic Cuff Blood Pressure Location Left Upper Arm Position Sitting Respiration 19 Pulse 64 Pulse Source Monitor Temp 97.5 F Temp Source Temporal Artery Scan Pulse Oximetry (%) 99 Oxygen Delivery Method Room Air Med/Allergies Allergies & Medications Allergies adhesive tape Allergy (Severe, Verified 04/19/25 20:52) SKIN BLISTERS, SKIN PEELS WHEN PULLING OFF Sulfa (Sulfonamide Antibiotics) Allergy (Severe, Verified 04/19/25 20:52) Hives Medication Reconciliation ejphzmyn-ssb-zotv-FA-Ca carb-vit K 18 mg iron-400 mcg-500 mg tablet (Women's Multivitamin) 1 tab PO QDAY 10/09/18 [History Confirmed 06/17/25] alendronate 70 mg tablet (Fosamax) 70 mg PO QWEEK 01/03/23 [History Confirmed 06/17/25] potassium citrate 10 mEq (1,080 mg) tablet,extended release 2,160 mg PO BID 01/03/23 [History Confirmed 06/17/25] ascorbic acid (vitamin C) 500 mg tablet (Vitamin C) 500 mg PO DAILY 03/10/23 [History Confirmed 06/17/25] folic acid-vit B6-vit B12 2.5 mg-25 mg-2 mg tablet 1 tab PO DAILY 03/10/23 [History Confirmed 06/17/25] trazodone 100 mg tablet 100 mg PO HS 03/10/23 [History Confirmed 06/17/25] acetaminophen 500 mg tablet (Acetaminophen Extra Strength) 1,000 mg (2 x 500 mg) PO Q6H PRN pain #90 tabs 02/12/25 [Rx Confirmed 06/17/25] amitriptyline 10 mg tablet 10 mg PO HS 02/12/25 [History Confirmed 06/17/25] aspirin 81 mg tablet,delayed release 81 mg PO BID #60 tabs 02/12/25 [Rx Confirmed 06/17/25] carvedilol 6.25 mg tablet (Coreg) 6.25 mg PO Q12H 02/12/25 [History Confirmed 06/17/25] doxycycline hyclate 100 mg tablet 100 mg PO BID #14 tabs 08/20/25 [Rx Confirmed 06/17/25] levothyroxine 150 mcg tablet 150 mcg PO DAILY 02/12/25 [History Confirmed 06/17/25] levothyroxine 25 mcg tablet 25 mcg PO MONFRI 02/12/25 [History Confirmed 06/17/25] losartan 100 mg-hydrochlorothiazide 12.5 mg tablet 1 tab PO DAILY 02/12/25 [History Confirmed 06/17/25] nitrofurantoin monohydrate/macrocrystals 100 mg capsule 100 mg PO DAILY 02/12/25 [History Confirmed 06/17/25] sennosides 8.6 mg-docusate sodium 50 mg tablet (Senna-S) 1 tab-cap PO QDAY #30 tabs 02/12/25 [Rx Confirmed 06/17/25] cyclobenzaprine 5 mg tablet 5 mg PO TID PRN muscle spasm #60 tabs 02/20/25 [Rx Confirmed 06/17/25] gabapentin 300 mg capsule 300 mg PO .qhs #30 caps 03/04/25 [Rx Confirmed 06/17/25] oxycodone 5 mg tablet 5 mg PO Q6H PRN pain #28 tabs 03/04/25 [Rx Confirmed 06/17/25] hydrocodone 5 mg-acetaminophen 325 mg tablet 1 tab PO Q6H PRN pain #12 tabs 04/19/25 [Rx Confirmed 06/17/25] hydrocodone 5 mg-acetaminophen 325 mg tablet 1 tab PO Q8H PRN pain #12 tabs 04/20/25 [Rx Confirmed 06/17/25] Exam Exam Patient is in no acute distress and is cooperative with the examination today. Breathing is nonlabored. Patient has a normal mood and affect. Bilateral extremities were evaluated and demonstrates sensation intact to light touch. Palpable pedal pulses are present. No significant edema is present. Bilateral hips were examined. The patient has no pain with log roll of the hips. Internal rotation to 30 degrees and external rotation to 30 degrees is painless. Negative FADIR. Right knee was examined today. The right knee is in reasonable alignment. Range of motion from 0-120 degrees. Knee is stable to varus and valgus as well as AP translation with <5mm. Patient has a negative McMurrays. There is no pain with patellofemoral compression and no crepitus noted. The knee is nontender to palpation. Left knee incision is clean dry intact. Range of motion 0 to 105 degrees Assessment and Plan Problem List (1) Arthritis of left knee: Status: Acute Plan: Patient is a pleasant 74-year-old female with left knee pain and left knee arthritis. She is status post left total knee replacement and is doing well. She has an infection of her wrist after a distal radius fracture. She is on antibiotics. We will see her back in 3 months for routine followup. We will renew her outpatient therapy. Advanced Care Planning Discussion Advance care planning discussed with:: patient Office Procedures GNS Level of Care Nursing/Assessment Patient Status: Established Patient Nursing Assessment/Reassesment: Medication Reconciliation, Update PMH in EMR and Vital Signs Coordination of Care: Complex Care and Chronic Disease 1-5, Education Complex Pt/Fam, Consent,records obtained, informed consent, Results/Orders obtained and Staff clarify orders Established Patient Charge Established Patient Point Assignment: 95 Established Patient Point Charge: Level 3 (80-115) MA Intake Visit Data Collection New Patient or Established: Established Patient (seen at [facility] within 3 years) Reason for Visit:: L TKA FOLLOW UP Seen by Clinical Staff ONLY (RN/MA): No Line Supervisor Required: No PCP or OBGYN visit in last 3 months: Yes Hx Now: No Do You Feel Safe at Home: Yes Authorities Contacted: N/A Questionairres Past Medical History Past Medical History Have you ever been diagnosed with any of the following: Neurological Problems Cerebrovascular Accident (CVA): No Transient Ischemic Attacks (TIA): No Dementia: No Alzheimer's Disease: No Parkinson's Disease: No Brain Tumor: No Meningitis: No Seizures: No Epilepsy: No Multiple Sclerosis: No Cerebral Palsy: No Amyotrophic Lateral Sclerosis (ALS/Radhika Gehrig's): No Guillain-[place]ster Syndrome: No Spina Bifida: No Paralysis: No Peripheral Neuropathy: Yes Rey's Palsy: No Subdural Hematoma: No Migraine: Yes Head Trauma: No Spinal Cord Injury: No Traumatic Brain Injury: No Cardiology Problems Myocardial Infarction: No Cardiac Arrhythmia: No Atrial Fibrillation: No Angina: No Heart Murmur: No Coronary Artery Disease: No Atherosclerotic Heart Disease: No Peripheral Vascular Disease: No Hypercholesterolemia: No Aneurysm: No Congestive Heart Failure: No Congenital Heart Disease: No Valvular Heart Disease: No Rheumatic Fever: No Cardiomyopathy: No Edema: Yes Pericarditis: No Cellulitis: No Deep Vein Thrombosis: No Hypertension: Yes Hypotension: No Varicose Veins: Yes Respiratory Problems Chronic Obstructive Pulmonary Disease (COPD): No Asthma: No Bronchitis: No Emphysema: No Pneumonia: No Pulmonary Fibrosis: No Tuberculosis: No Pulmonary Embolism: No Pulmonary Edema: No Sleep Apnea: No CPAP Dependent: No Respiratory Aspiration: No Dyspnea: No Orthopnea: No Hx Cough: No Cough: No Wheezing: No Chest Deformities: No Smoking: No Smoking Cessation Counseling: No Smoking Exposure: No Tobacco Use: No Clubbing: No Exposure to Respiratory Irritants: No Intubation: No Stomache/Intestinal Problems Liver Cancer: No Hepatitis: No Cirrhosis: No Pancreatic Cancer: No Pancreatitis: Yes Celiac Disease: No Gall Bladder Disease: Yes (cholecystectomy) Gastrointestinal Bleed: No Esophageal Varices: No Costello's Esophagus: No Colitis: Yes Ulcerative Colitis: No Diverticulitis: No Diverticulosis: No Ulcer: No Colorectal Cancer: No Irritable Bowel: No Crohn's Disease: No Obstructive Bowel: No Hiatal Hernia: No Hemorrhoids: No Gastroesophageal Reflux Disease: No Polyps: No Obesity: No Genital/Urinary Problems Chronic Kidney Disease: No Renal Disease: No Kidney Stones: Yes (lythotripsyx7) Polycystic Kidney Disease: No Neurogenic Bladder: No Inguinal Hernia: No Dialysis: No Reproductive Problems Breast Cancer: No Endometriosis: No Fibroids: No Genital Herpes: No Gonorrhea: No Pelvic Inflammatory Disease: No Polycystic Ovarian Syndrome: No Previous Pregnancies: Yes () Syphilis: No Uterine Prolapse: No Musculoskeletal Problems Muscular Dystrophy: No Myasthenia Gravis: No Marfan's Syndrome: No Bone Cancer: No Arthritis: Yes Rheumatoid Arthritis: No Osteoporosis: No Degenerative Disk Disease: No Gout: Yes Scoliosis: No Carpal Tunnel Syndrome: Yes (and trigger finger release ) Fibromyalgia: No Fractures: Yes Degenerative Joint Disease: No Osteomyelitis: No Poliovirus: No Head,Eye,Nose,Throat Problems Cataracts: No Glaucoma: No Blind: No Retinal Detachment: No Macular Degeneration: No Chronic Ear Infections: No Deafness: No Eye Prosthesis: No Endocrine Problems Diabetes Mellitus Type 1: No Diabetes Mellitus Type 2: Yes (History of no longer taking medication) Hypoglycemia: No Gómez's Syndrome: No Davon's Disease: No Hyperthyroidism: No Hypothyroidism: Yes Thyroid Cancer: No Parathyroid Disease: No Pituitary Disease: No Systemic Lupus Erythematosus: No Syndrome of Inappropriate Antidiuretic Hormone: No Adrenal Disease: No Graves' Disease: No Blood Problems Anemia: No Leukemia: No Hemophilia: No Thalassemia: No Sickle Cell Disease: No Clotting Problems: No Psychologic Problems Schizophrenia: No Recreational Drug Use: No Bipolar Disorder: No Depression: No Anxiety: No Behavior Problems: No Self-Mutilation: No Attention Deficit Disorder: No Attention Deficit Hyperactivity Disorder: No Depression: No Post Traumatic Stress Disorder: No Eating Disorder: No Other Problems Hospitalization: Yes Autoimmune Disease: No Down Syndrome: No Autism: No Developmental Delay: No Cosmetic Surgery: No Shingles: No Falls: No Blood Transfusions: No Blood Transfusion Reaction: No Anesthesia Reactions: No Organ Transplant: No Chemotherapy: No Radiation Therapy: No Hyperbaric Therapy: No MRSA: No VRSA: No Vancomycin-Resistant Enterococci: No Human Immunodeficiency Virus (HIV): No Chicken Pox: Yes Measles: Yes Mumps: Yes Rubella (Hebrew Measles): No Pertussis: No Klebsiella Pneumoniae Carbapenemase Producing Bacteria: No Clostridium Difficile: No Hepatitis A: No Hepatitis B: No Hepatitis C: No Communicable Disease: No Cancer: No Cervical Cancer: No Lung Cancer: No Ovarian Cancer: No Surgical History Angioplasty: No Appendectomy: No Bariatric Surgery: No Breast Surgery: No Cancer Surgery: No Carotid Endarterectomy: No Cholecystectomy: No Colectomy: No Colostomy: No Coronary Artery Bypass Graft: No Valve Replacement: No Herniorrhaphy: No Total Hip Replacement: No Total Knee Replacement: Yes (RIGHT KNEE) Hysterectomy: No Pacemaker: No Sinus Surgery: No Splenectomy: No TAHBSO-Total Abdominal Hysterectomy: No Thyroidectomy: Yes (Parathyroidectomy 2011) Ureter Stent: No Subjective Visit Visit for: follow up visit and knee Immunization / Flu Flu Vaccine in the Last 12 Months: Yes Flu Vaccine Exclusion Criteria: Allergy to Eggs History of Present Illness Chief complaint: LEFT TKA FOLLOW UP Jasmin is a pleasant 74-year-old female with left knee pain. She is status post left total knee replacement and is 16 weeks postop. She is doing well. Personal History Occupation: RETIRED [employer] provided: No Pain Pain level (0-10): 0 Pain location: inside (medial) and anterior Pain quality: sharp Pain timing: night Associated signs & symptoms: none Ambulatory data Ambulatory device: none Treatments Improvement with previous injections: No Improvement with PT: No Improvement with NSAIDS: no Review of Systems Review of Systems: All systems negative unless otherwise noted in HPI.
[2025-06-17 08:28] VITALS: BP 109/62; PULSE 64; RESP 19; TEMP 36.4; O2SAT 99; BMI 30.5
== END 2025-06-17 08:33 | disposition home or self-care (01) ==
LOC: HODSRG 08:16
PROVIDERS: PCP Family Medicine; Referring Provider Family Medicine; Supervising Provider Orthopaedic Surgery Adult Reconstructive Orthopaedic Surgery; Visit Provider Orthopaedic Surgery Adult Reconstructive Orthopaedic Surgery
DX: Z47.1 Aftercare following joint replacement surgery (principal); Z96.652 Presence of left artificial knee joint; M25.562 Pain in left knee; B99.9 Unspecified infectious disease; I10 Essential (primary) hypertension
CPT/HCPCS: 99213; G0463